=== PATIENT | male | born 1935 | race Caucasian/White ===

== ENCOUNTER 2016-06-02 21:56 | Inpatient (IN) | payer MEDICARE, OTHER ==
[2016-06-02] MEDS ORDERED: Furosemide IV* 10 MG/ML 10 ML VIAL (100 MG) ONE (22:00)
[2016-06-02 22:20] LABS: FIO2 100; PCO2 Arterial 55 mmHg (35-45)
[2016-06-02] MEDS ORDERED: Furosemide IV* 10 MG/ML VIAL (40 MG) IV SLOW PU ONE (22:26)
--- NOTE | 2016-06-02 22:43 | RAD ---
HISTORY: Shortness of breath COMPARISONS: January 09, 2015 VIEWS:1: Single frontal portable view of the chest at 10:24 PM FINDINGS: LINES AND TUBES: None. CARDIOMEDIASTINAL SILHOUETTE: The cardiomediastinal silhouette is stable. PLEURA: The costophrenic angles are sharp. No pleural abnormalities are noted. LUNG PARENCHYMA: There is confluent alveolar opacification of the lower lungs bilaterally. There is diffuse reticular pattern with indistinct pulmonary vessels. ABDOMEN: The upper abdomen is clear. There is no subphrenic gas. BONES AND SOFT TISSUES: The patient is status post median sternotomy IMPRESSION: 1. PULMONARY INTERSTITIAL EDEMA. 2. THERE IS AIRSPACE DISEASE OF THE LOWER LUNGS BILATERALLY WHICH MAY BE SUPERIMPOSED CONSOLIDATION OR PULMONARY ALVEOLAR EDEMA.
[2016-06-02 23:07] LABS: Hematocrit 32 % (42-52); Hemoglobin 10.2 g/dl (14.0-18.0); Mean Corpuscular HGB Conc 32 g/dl (31-36); Mean Corpuscular Hemoglobin 32 pg (27-31); Mean Corpuscular Volume 100 fL (80-94); Mean Platelet Volume 10 um3 (7.4-10.4); Red Blood Count 3.23 10^6/ul (4.0-5.4); Red Cell Distribution Width 15 % (10.5-15); White Blood Count 13.2 10^3/ul (3.5-10.8)
--- NOTE | 2016-06-02 23:09 | ED ---
El Martinez Erika, scribed for Adam Kearns MD on 06/02/16 at 2223 . Shortness of Breath - HPI Summary HPI Summary: Patient is an 81-year-old male presenting to the ED with a CC of SOB starting today. Per daughter, pt was at baseline this morning, except for an increase in fluid retention. Pt takes furosemide, and is followed by clean room technician Dr. Augustin. Daughter also reports pt has had a slight wet cough recently, but this occurs intermittently so was not concerning for her. She states he also noted lower abdominal pain this morning. This evening, pt suddenly developed increased SOB, and had difficulty walking due to fatigue and SOB with exertion. Pt had dinner prior to that at his son's house abelardo, who states no signs of choking. EMS was called, and reports that pt's O2 Sat was in the 70s at home. Pt does not normally use home O2. He improved to the low 80s with nasal cannula , and to the 90s with a mask. Currently, pt denies pain. Hx aortic valve dissection at age 15, with additional surgery in his 70s. Hx diabetes managed by diet. 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 Espinoza. Hx Alzheimer's - uses Namenda patch. Pt lives with his daughter, who is an RN and has power of tax attorney. Prior Records Reviewed: Discharge summary for admission 01/09/2015, diagnosed with AMS due to viral illness. He has had a cardiac stress test 01/27/2009 low probability of ischemia. Echocardiogram 01/2006 - diastolic dysfunction, at that point normal aortic valve function, ejection fracture 65-70%. - History of Current Complaint Time Seen by Provider: 06/02/16 21:57 Hx Obtained From: Patient, Family/Photoresist Contact Printer - Daughter, EMS Onset/Duration: Sudden Onset, Lasting Hours, Still Present Timing: Constant Current Severity: Moderate Dyspnea At: Rest Aggrevating Factors: Deep Breaths Alleviating Factors: EMS Tx, Oxygen Associated Signs & Symptoms: Edema - Allergy/Home Medications Allergies/Adverse Reactions: Allergies Allergy/AdvReac Type Severity Reaction Status Date / Time CONTRAST Allergy Unknown Uncoded 01/09/15 22:19 Reaction Details PMH/Surg Hx/FS Hx/Imm Hx Endocrine/Hematology History: Reports: Hx Thyroid Disease - Hypothyroid Cardiovascular History: Reports: Hx Congenital Heart Disease, Hx Congestive Heart Failure, Hx Coronary Artery Disease, Hx Hypertension History: Reports: Hx Chronic Renal Failure - Stage 3 Musculoskeletal History: Reports: Hx Back Problems Sensory History: Reports: Hx Contacts or Glasses Opthamlomology History: Reports: Hx Contacts or Glasses Neurological History: Reports: Hx Dementia Psychiatric History: Reports: Hx Anxiety, Hx Depression - Surgical History Surgery Procedure, Year, and Place: Aortic dissection repair - Family History Known Family History: Positive: Renal Disease - Social History Alcohol Use: Occasionally Hx Substance Use: No Substance Use Type: Reports: None Hx Tobacco Use: Yes Smoking Status (MU): Former Smoker Review of Systems Positive: Fatigue Positive: Shortness Of Breath, Cough Positive: Abdominal Pain Positive: Edema. Negative: Arthralgia, Myalgia All Other Systems Reviewed And Are Negative: Yes Physical Exam - Summary Physical Exam Summary: General: Comfortable, pleasant, appears lethargic HEENT: Moist mucosa Neck: Soft, supple, no adenopathy, no edema Heart: S1, S2, tachycardic with regular rhythm. No large murmurs, rubs, or gallops Lungs: Tachypnic at a rate of 50. Increased work of breathing. Moderate air movement throughout. Hoarse sounding rhonchi throughout. Rales Abdomen: Soft, flat, non-tender Extremities: Trace pitting edema, no calf tenderness. Neurological: Unaware of location, month Triage Information Reviewed: Yes Vital Signs On Initial Exam: Temp Pulse Resp BP Pulse Ox 98.8 F 106 24 152/71 95 06/02/16 22:04 06/02/16 22:19 06/02/16 22:19 06/02/16 22:04 06/02/16 22:19 Vital Signs Reviewed: Yes Procedures - Procedure Summary Procedure Summary: US Guided IV - Right superficial radial vein. 18 gauge needle, ultrasound guided. 1 attempt. Indication was poor IV access according to nurses. Diagnostics - Vital Signs Vital Signs Temp Pulse Resp BP Pulse Ox 06/02/16 22:19 106 24 95 06/02/16 22:04 98.8 F 106 50 152/71 92 - Laboratory Lab Results: Lab Results 06/02/16 Range/Units 22:15 Patient Temperature Not Reportable ABG pH 7.22 L (7.35-7.45) ABG pCO2 55 H (35-45) mmHg ABG pO2 67 L (80-100) mmHg ABG HCO3 20.6 (19-31) mmol/L ABG O2 Saturation 96.2 (95-98) % ABG Base Excess -5.4 L (-2.0-2.0) Respiration Rate Not Reportable O2 Delivery Device non rebreather Ventilator Type Not Reportable Vent Mode Not Reportable FiO2 100 Inspiratory Time Not Reportable PEEP Not Reportable Pressure Support Not Reportable Pressure Control Not Reportable EPAP Not Reportable IPAP Not Reportable BiPAP Not Reportable Lab Statement: Any lab studies that have been ordered have been reviewed, and results considered in the medical decision making process. - Radiology CXR Radiology Interpretation Completed By: Radiologist - IMPRESSION: 1. PULMONARY INTERSTITIAL EDEMA. 2. THERE IS AIRSPACE DISEASE OF THE LOWER LUNGS BILATERALLY WHICH MAY BE SUPERIMPOSED CONSOLIDATION OR PULMONARY ALVEOLAR EDEMA. - EKG 21:54 Cardiac Rate: Tachycardia - at 107 bpm EKG Rhythm: Sinus Tachycardia EKG Interpretation: ST depressions inferior lateral leads EKG Comparison: No Significant Change - compared to 01/10/2015 Re-Evaluation - Re-Evaluation First Eval Re-Evaluation Time: 22:27 Change: Improved Comment: At this time, daughter reports pt's MOLST status - agrees with trial intubation. Pt appears to be breathing more comfortably. Course/Dx - Course Assessment/Plan: He has a Hx of congenital heart disease, and multiple other comorbidities. He has had an aortic valve replacement. Apparently he has been doing fairly well except for weight gain, except tonight where he somewhat precipitately developed SOB, altered mental status, and weakness. No signs of acute HI on EKG, however likely this is flash pulmonary edema. We are aggressively managing with BiPAP, Lasix, and I will add Nitro. Dr. Parham accepts patient for admission, likely will consider ICU. - Diagnoses Differential Diagnosis/HQI/PQRI: Positive: Airway Obstruction, Airway Foreign Body, Asthma, Bronchitis, CHF, Chest Wall Pain, COPD Exacerbation, Pneumonia, Pneumothorax, Pulmonary Embolism, Pulmonary Edema, Unstable Angina Provider Diagnoses: Hypoxemia, SOB (shortness of breath) - Physician Notifications Discussed Care of Patient With: Dr. Parham (hospitalist) at 22:50 - agrees to admit Instructed by Provider To: Admit As Inpatient - Critical Care Time Critical Care Time: 30-74 min - 60 minutes Discharge - Discharge Plan Condition: Stable Disposition: ADMITTED TO [facility] Referrals: Bj Purdy MD [Primary Care Provider] - The documentation as recorded by the El ochoa Erika accurately reflects the service I personally performed and the decisions made by , Adam Kearns MD.
[2016-06-02] MEDS ORDERED: Nitroglycerin 2% OINT* 1 GM PAK TOPICAL ONE (23:17)
--- NOTE | 2016-06-02 23:19 | ED ---
Progress - Progress Note Progress Note: Rae the charge nurse informs me that if the patient stays an ICU patient then he may need to be transferred as we do not have an ICU bed. Pt is currently trial intubation and CPR/acls protocol. likely this is chf. second abg is being obtained and he is improving on Bipap. Dr. Parham aware of the patient as well as Dr. Valenzuela. if patient still remains an ICU patient and needs bipap continued overnight, he may need to be transferred. Re-Evaluation - Re-Evaluation First Eval Re-Evaluation Time: 22:27 Change: Improved Comment: At this time, daughter reports pt's MOLST status - agrees with trial intubation. Pt appears to be breathing more comfortably. Course/Dx - Diagnoses Provider Diagnoses: Hypoxemia, SOB (shortness of breath) - Provider Notifications Discussed Care Of Patient With: Dr. Parham (hospitalist) at 22:50 - agrees to admit Instructed by Provider To: Admit As Inpatient - Critical Care Time Critical Care Time: 30-74 min - 60 minutes
[2016-06-02 23:24] LABS: Add Diff/Slide Review? Slide Review Added; Comments Flag Yes
[2016-06-02 23:27] LABS: BIPAP yes; EPAP 8; FIO2 40; IPAP 16
[2016-06-02 23:30] LABS: PCO2 Arterial 44 mmHg (35-45)
[2016-06-02 23:33] LABS: BUN/Creatinine Ratio 17.7 (8-20); Calcium 8.5 mg/dL (8.6-10.3); EGFR African American 24.3 (>60); EGFR Non-African American 18.9 (>60); Globulin 3.2 g/dL (2-4); Potassium 6.1 mmol/L (3.5-5.0); Total Bilirubin 0.3 mg/dL (0.2-1.0); Total Protein 7.2 g/dL (6.4-8.9); Troponin I 0.42 ng/mL (<0.04)
--- NOTE | 2016-06-02 23:38 | HP ---
H&P (Free Text) History and Physical: PCP: Stephen Purdy MD Cardiology: Cyndi Augustin MD Nephrology: June Espinoza MD Date/Time of Evaluation: 06/02/2015 2359 CC: SOB HPI: Mr Mohan is an 81YO male HX coarctation repair age 15, s/p porcine AVR, DM2 , CKD stg 4, CAD, HTN, & HLD presents with 2-3days of increasing BLE edema and exertional SOB which became much worse today. He denies chest pain, palpitations , sweats, F/C, N/V/D, or other issues. ED evaluation is notable for a CXR most consistent with CHF, stable chronic macrocytic anemia, WBCs 13k w/ 92% neutrophils, ABG with hypoxic hypercarbic respiratory failure, K 6.1, an OTIS with creatinine of 3.16 (baseline 2 - 2.5), & troponin of 0.4. BNP has not yet been ordered. ECG PMedHx aortic coarctation s/p repair porcine AVR DM2 CKD stg 4 CAD HTN HLD Alzheimer's dementia migraines spinal stenosis s/p laminectomy Allergies CONTRAST Allergy (Uncoded 01/09/15 22:19) Unknown Reaction Details Ambulatory Orders Acetaminophen 500 mg PO DAILY 01/10/15 Levothyroxine TAB* [Synthroid TAB*] 75 mcg PO 0800 01/10/15 Memantine TAB* [Namenda TAB*] 10 mg PO BID 01/10/15 [place]-3 Fatty Acids [Fish Oil] 2,400 mg PO BID 01/10/15 Sertraline* [Zoloft*] 50 mg PO BEDTIME 01/10/15 Terazosin CAP* [Hytrin CAP*] 1 mg PO BEDTIME 01/10/15 Valsartan TAB* [Diovan TAB*] 325 mg PO QPM 01/10/15 amLODIPine TAB* [Norvasc TAB*] 10 mg PO QAM 01/10/15 Furosemide TAB* [Lasix TAB*] 120 mg PO QAM 06/03/16 SocHx: former smoker, no alcohol or recreational drugs; lives with his daughter ; DNR, trial of intubation FamHx: reviewed, non-contributory ROS: as above, otherwise reviewed and all were negative Constitutional: NAD, normally developed, overweight elderly white male vitals: Vital Signs Temp 37.1 C 01/08/17 22:04 Pulse 84 06/02/16 23:20 Resp 18 06/02/16 23:20 BP 152/71 06/02/16 22:04 Pulse Ox 93 06/02/16 23:20 Intake & Output 06/02/16 06/02/16 06/03/16 11:59 23:59 11:59 Weight 185 lb HEENM: atraumatic; sclera/conjunctiva: non-icteric/mildly injected; hearing: clinically mildly decreased; oropharynx: clear, mucosa moist Neck: soft tissue: non-tender; thyroid: normal Pulmonary: fine bibasilar crackles, fair aeration, no accessory muscle use CV: TR/RR, normal S1S2, no carotid bruit, no jugular venous distention, 2+ B DP/ PT, 1+ BLE edema Abdominal: soft, non-distended, non-tender, no rebound/guarding/rigidity, normoactive bowel sounds, no hepatosplenomegaly or masses, no costovertebral angle tenderness Musculoskeletal: general: grossly intact; gait: borderline stability Integumental: normal appearance and texture Psychiatric orientation: AA&O to PPS affect: calm mood: cooperative eye contact: good content: reliable memory: short-term impaired responses: mildly slowed, likely 2nd BiPap insight: fair Testing: Lab Results 06/02/16 06/02/16 06/02/16 Range/Units 22:10 22:10 22:10 WBC 13.2 H (3.5-10.8) 10^3/ul RBC 3.23 L (4.0-5.4) 10^6/ul Hgb 10.2 L (14.0-18.0) g/dl Hct 32 L (42-52) % MCV 100 H (80-94) fL MCH 32 H (27-31) pg MCHC 32 (31-36) g/dl RDW 15 (10.5-15) % Plt Count 178 (150-450) 10^3/ul MPV 10 (7.4-10.4) um3 Neut % (Auto) 92.3 H (38-83) % Lymph % (Auto) 2.2 L (25-47) % Glenn % (Auto) 3.0 (1-9) % Eos % (Auto) 0.5 (0-6) % Baso % (Auto) 2.0 (0-2) % Absolute Neuts (auto) 12.2 H (1.5-7.7) 10^3/ul Absolute Lymphs (auto) 0.3 L (1.0-4.8) 10^3/ul Absolute Monos (auto) 0.4 (0-0.8) 10^3/ul Absolute Eos (auto) 0.1 (0-0.6) 10^3/ul Absolute Basos (auto) 0.3 H (0-0.2) 10^3/ul Absolute Nucleated RBC 0 10^3/ul Nucleated RBC % 0 APTT (26.0-36.3) seconds Patient Temperature ABG pH (7.35-7.45) ABG pCO2 (35-45) mmHg ABG pO2 (80-100) mmHg ABG HCO3 (19-31) mmol/L ABG O2 Saturation (95-98) % ABG Base Excess (-2.0-2.0) Respiration Rate O2 Delivery Device Ventilator Type Vent Mode FiO2 Inspiratory Time PEEP Pressure Support Pressure Control EPAP IPAP BiPAP Sodium 143 (133-145) mmol/L Potassium 6.1 H* (3.5-5.0) mmol/L Chloride 113 H (101-111) mmol/L Carbon Dioxide 23 (22-32) mmol/L Anion Gap 7 (2-11) mmol/L BUN 56 H (6-24) mg/dL Creatinine 3.16 H (0.67-1.17) mg/dL Est GFR ( Amer) 24.3 (>60) Est GFR (Non-Af Amer) 18.9 (>60) BUN/Creatinine Ratio 17.7 (8-20) Glucose 226 H (70-100) mg/dL Lactic Acid 0.9 (0.5-2.0) mmol/L Calcium 8.5 L (8.6-10.3) mg/dL Total Bilirubin 0.30 (0.2-1.0) mg/dL AST 25 (13-39) U/L ALT 30 (7-52) U/L Alkaline Phosphatase 56 (34-104) U/L Troponin I 0.42 H* (<0.04) ng/mL B-Natriuretic Peptide ( - 100) pg/mL Total Protein 7.2 (6.4-8.9) g/dL Albumin 4.0 (3.2-5.2) g/dL Globulin 3.2 (2-4) g/dL Albumin/Globulin Ratio 1.3 (1-3) Procalcitonin (<0.6) ng/mL 06/02/16 06/02/16 06/02/16 Range/Units 22:10 22:10 22:10 WBC (3.5-10.8) 10^3/ul RBC (4.0-5.4) 10^6/ul Hgb (14.0-18.0) g/dl Hct (42-52) % MCV (80-94) fL MCH (27-31) pg MCHC (31-36) g/dl RDW (10.5-15) % Plt Count (150-450) 10^3/ul MPV (7.4-10.4) um3 Neut % (Auto) (38-83) % Lymph % (Auto) (25-47) % Glenn % (Auto) (1-9) % Eos % (Auto) (0-6) % Baso % (Auto) (0-2) % Absolute Neuts (auto) (1.5-7.7) 10^3/ul Absolute Lymphs (auto) (1.0-4.8) 10^3/ul Absolute Monos (auto) (0-0.8) 10^3/ul Absolute Eos (auto) (0-0.6) 10^3/ul Absolute Basos (auto) (0-0.2) 10^3/ul Absolute Nucleated RBC 10^3/ul Nucleated RBC % APTT 27.8 (26.0-36.3) seconds Patient Temperature ABG pH (7.35-7.45) ABG pCO2 (35-45) mmHg ABG pO2 (80-100) mmHg ABG HCO3 (19-31) mmol/L ABG O2 Saturation (95-98) % ABG Base Excess (-2.0-2.0) Respiration Rate O2 Delivery Device Ventilator Type Vent Mode FiO2 Inspiratory Time PEEP Pressure Support Pressure Control EPAP IPAP BiPAP Sodium (133-145) mmol/L Potassium (3.5-5.0) mmol/L Chloride (101-111) mmol/L Carbon Dioxide (22-32) mmol/L Anion Gap (2-11) mmol/L BUN (6-24) mg/dL Creatinine (0.67-1.17) mg/dL Est GFR ( Amer) (>60) Est GFR (Non-Af Amer) (>60) BUN/Creatinine Ratio (8-20) Glucose (70-100) mg/dL Lactic Acid (0.5-2.0) mmol/L Calcium (8.6-10.3) mg/dL Total Bilirubin (0.2-1.0) mg/dL AST (13-39) U/L ALT (7-52) U/L Alkaline Phosphatase (34-104) U/L Troponin I (<0.04) ng/mL B-Natriuretic Peptide 581 H ( - 100) pg/mL Total Protein (6.4-8.9) g/dL Albumin (3.2-5.2) g/dL Globulin (2-4) g/dL Albumin/Globulin Ratio (1-3) Procalcitonin 0.2 (<0.6) ng/mL 06/02/16 06/02/16 Range/Units 22:15 23:15 WBC (3.5-10.8) 10^3/ul RBC (4.0-5.4) 10^6/ul Hgb (14.0-18.0) g/dl Hct (42-52) % MCV (80-94) fL MCH (27-31) pg MCHC (31-36) g/dl RDW (10.5-15) % Plt Count (150-450) 10^3/ul MPV (7.4-10.4) um3 Neut % (Auto) (38-83) % Lymph % (Auto) (25-47) % Glenn % (Auto) (1-9) % Eos % (Auto) (0-6) % Baso % (Auto) (0-2) % Absolute Neuts (auto) (1.5-7.7) 10^3/ul Absolute Lymphs (auto) (1.0-4.8) 10^3/ul Absolute Monos (auto) (0-0.8) 10^3/ul Absolute Eos (auto) (0-0.6) 10^3/ul Absolute Basos (auto) (0-0.2) 10^3/ul Absolute Nucleated RBC 10^3/ul Nucleated RBC % APTT (26.0-36.3) seconds Patient Temperature Not Reportable Not Reportable ABG pH 7.22 L 7.31 L (7.35-7.45) ABG pCO2 55 H 44 (35-45) mmHg ABG pO2 67 L 69 L (80-100) mmHg ABG HCO3 20.6 21.9 (19-31) mmol/L ABG O2 Saturation 96.2 97.6 (95-98) % ABG Base Excess -5.4 L -3.9 L (-2.0-2.0) Respiration Rate Not Reportable Not Reportable O2 Delivery Device non rebreather Ventilator Type Not Reportable Not Reportable Vent Mode Not Reportable bipap FiO2 100 40 Inspiratory Time Not Reportable Not Reportable PEEP Not Reportable Not Reportable Pressure Support Not Reportable Not Reportable Pressure Control Not Reportable Not Reportable EPAP Not Reportable 8 IPAP Not Reportable 16 BiPAP Not Reportable yes Sodium (133-145) mmol/L Potassium (3.5-5.0) mmol/L Chloride (101-111) mmol/L Carbon Dioxide (22-32) mmol/L Anion Gap (2-11) mmol/L BUN (6-24) mg/dL Creatinine (0.67-1.17) mg/dL Est GFR ( Amer) (>60) Est GFR (Non-Af Amer) (>60) BUN/Creatinine Ratio (8-20) Glucose (70-100) mg/dL Lactic Acid (0.5-2.0) mmol/L Calcium (8.6-10.3) mg/dL Total Bilirubin (0.2-1.0) mg/dL AST (13-39) U/L ALT (7-52) U/L Alkaline Phosphatase (34-104) U/L Troponin I (<0.04) ng/mL B-Natriuretic Peptide ( - 100) pg/mL Total Protein (6.4-8.9) g/dL Albumin (3.2-5.2) g/dL Globulin (2-4) g/dL Albumin/Globulin Ratio (1-3) Procalcitonin (<0.6) ng/mL ECG, personally reviewed: sinus tachycardia rate 107, infero-lateral mild ST depression CXR, personally reviewed: IMPRESSION: 1. PULMONARY INTERSTITIAL EDEMA. 2. THERE IS AIRSPACE DISEASE OF THE LOWER LUNGS BILATERALLY WHICH MAY BE SUPERIMPOSED CONSOLIDATION OR PULMONARY ALVEOLAR EDEMA. Impression: 81M presenting with acute mixed systolic/diastolic HF, acute hypoxic /hypercarbic respiratory failure, elevated troponin, & OTIS DIAGNOSIS & PLAN Primary acute mixed systolic/diastolic HF : given 140mg furosemide in ED, continue IV diuresis in AM : NIPPV protocol : NPO for now : ICU monitoring : bolden to gravity : strict I&Os : daily weights : update ECHO : supplemental oxygen : supportive care acute hypoxic/hypercarbic respiratory failure : as above elevated troponin : suspect 2nd demand ischemia : aspirin : unable to initiate beta darin in acute CHF : telemetry : trend OTIS : suspect 2nd CHF & anticipate improvement with furosemide diuresis : monitor hyperKalemia : recheck prior to initiating TX : if confirmed, will give 1g calcium gluconate anticipating that furosemide diuresis will further resolve : cannot give insulin IVFs 2nd decompensated CHF Secondary HX aortic coarctation s/p repair : no acute issues porcine AVR : no acute issues DM2 : diet controlled : check A1c : consistent carb diet once taking PO again : correctional protocol CKD stg 4 : is not interested in dialysis : trend CAD : continue aspirin HTN : continue amlodipine : hold valsartan in setting of OTIS HLD : heart healthy diet once taking PO again hypothyroidism : check TSH : continue levothyroxine Alzheimer's dementia : continue donepezil depression : continue sertraline BPH : continue terazosin Admission Rational: inpatient for ICU management of acute HF inappropriate for outpatient setting DVTp: heparin SQ & SCDs Code Status: DNR, trial of intubation HCP: daughterKathy
[2016-06-03] MEDS ORDERED: Ondansetron INJ* 2 MG/ML VIAL IV PRN (00:45)
[2016-06-03] MEDS ORDERED: Albuterol 2.5 MG/3 ML NEB.SOL* (0.083%) INH PRN (00:45)
[2016-06-03] MEDS ORDERED: Furosemide IV* 10 MG/ML 10 ML VIAL (100 MG) IV ONE (01:00)
[2016-06-03 01:31] LABS: TSH (Thyroid Stimulating Horm) 1.5 mcIU/mL (0.34-5.60)
[2016-06-03] MEDS ORDERED: Calcium Gluconate INJ* 1 GM in NS 0.9% 100 ML* 100 ML IVPB ONE (01:36)
[2016-06-03] MEDS: Aspirin TAB* 325 MG PO SCH ×2 (02:12→11:02)
[2016-06-03] MEDS: Insulin LISPRO* 1 UNITS UNIT SUBCUT SCH ×6 (02:12→21:14)
[2016-06-03] MEDS: LORazepam INJ* 2 MG/ML 1 ML VIAL IV PRN ×2 (04:39→21:14)
[2016-06-03] MEDS ORDERED: Heparin VIAL(*) 5000 UNITS/ML VIAL (FIVE THOUSAND) SUBCUT SCH (06:00)
[2016-06-03 06:40] LABS: Hematocrit 26 % (42-52); Hemoglobin 8.5 g/dl (14.0-18.0); Mean Corpuscular HGB Conc 33 g/dl (31-36); Mean Corpuscular Hemoglobin 32 pg (27-31); Mean Corpuscular Volume 99 fL (80-94); Mean Platelet Volume 10 um3 (7.4-10.4); Red Blood Count 2.65 10^6/ul (4.0-5.4); Red Cell Distribution Width 14 % (10.5-15); White Blood Count 8.2 10^3/ul (3.5-10.8)
[2016-06-03 06:51] LABS: BUN/Creatinine Ratio 17.5 (8-20); Calcium 8.4 mg/dL (8.6-10.3); EGFR African American 23.6 (>60); EGFR Non-African American 18.3 (>60); Potassium 5.3 mmol/L (3.5-5.0)
[2016-06-03 07:08] LABS: Troponin I 4.08 ng/mL (<0.04)
[2016-06-03] MEDS ORDERED: Furosemide IV* 10 MG/ML 10 ML VIAL (100 MG) IV SCH (08:00)
[2016-06-03] MEDS ORDERED: Heparin VIAL(*) 5000 UNITS/ML VIAL (FIVE THOUSAND) IV SCH (08:00)
[2016-06-03] MEDS ORDERED: Pantoprazole IV* 40 MG IV SCH (09:00)
[2016-06-03] MEDS: Levothyroxine TAB* 75 MCG TAB PO SCH (09:30)
[2016-06-03 09:41] LABS: Hematocrit 29 % (42-52); Hemoglobin 9.3 g/dl (14.0-18.0)
[2016-06-03] MEDS: Heparin DRIP 25,000 UNITS(*) 25,000 UNITS/500 ML BAG IVPB SCH (09:45)
[2016-06-03 10:03] LABS: Troponin I 4.37 ng/mL (<0.04)
[2016-06-03] MEDS: amLODIPine TAB* 5 MG PO SCH (11:02)
[2016-06-03] MEDS: Docusate CAP* 100 MG PO SCH ×2 (11:02→21:15)
[2016-06-03] MEDS: Memantine TAB* 10 MG PO SCH ×2 (11:02→21:31)
[2016-06-03] MEDS: Pantoprazole IV* 40 MG IV SCH (13:21)
--- NOTE | 2016-06-03 14:26 | CONSULT ---
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 CXR revealed overt CHF changes and hyperinflation, cardiomegaly. K was 6.1 on admission. He has additional diagnoses of DM2, stage 4 CKD, HTN, HLD, and mild Alzheimer's dementia. He had an aortic valve replacement about 10 years ago. On admission his pH was 7.22 with pCO2 55 and pO2 67, BE -5.4. He has at least a 30 pack year history of smoking. The family have decided that they would like to avoid further interventions and have refused cardiac catheterization. They would not want any surgical intervention and so troponins are no longer being monitored. The family would like the patient to be at home on hospice services if he is eligible. He has been living for one month with his daughter Rosie who runs an in-home senior day care. The patient is stillla ble to care for himself with most ADLs and has enjoyed leaving the house to go shopping, etc. up until this admission. It is uncertain how much function he has lost. He has good long-term memory but is not oriented to place or time and has short-term loss. Lab Values: Abnormal Lab Results 06/03/16 06/03/16 06/03/16 00:40 01:24 01:58 WBC RBC Hgb Hct MCV MCH MCHC RDW Plt Count MPV Neut % (Auto) Lymph % (Auto) Lander % (Auto) Eos % (Auto) Baso % (Auto) Absolute Neuts (auto) Absolute Lymphs (auto) Absolute Monos (auto) Absolute Eos (auto) Absolute Basos (auto) Absolute Nucleated RBC Nucleated RBC % APTT Sodium Potassium 6.2 H* Chloride Carbon Dioxide Anion Gap BUN Creatinine Est GFR ( Amer) Est GFR (Non-Af Amer) BUN/Creatinine Ratio Glucose POC Glucose (mg/dL) 189 H Hemoglobin A1c Calcium Troponin I Influenza A (Rapid) Negative Influenza B (Rapid) Negative 06/03/16 06/03/16 06/03/16 06:11 06:13 06:13 WBC RBC Hgb Hct MCV MCH MCHC RDW Plt Count MPV Neut % (Auto) Lymph % (Auto) Lander % (Auto) Eos % (Auto) Baso % (Auto) Absolute Neuts (auto) Absolute Lymphs (auto) Absolute Monos (auto) Absolute Eos (auto) Absolute Basos (auto) Absolute Nucleated RBC Nucleated RBC % APTT Sodium 145 Potassium 5.3 H Chloride 115 H Carbon Dioxide 24 Anion Gap 6 BUN 57 H Creatinine 3.25 H Est GFR ( Amer) 23.6 Est GFR (Non-Af Amer) 18.3 BUN/Creatinine Ratio 17.5 Glucose 118 H POC Glucose (mg/dL) 130 H Hemoglobin A1c 6.0 Calcium 8.4 L Troponin I 4.08 H* Influenza A (Rapid) Influenza B (Rapid) 06/03/16 06/03/16 06/03/16 06:13 09:27 09:27 WBC 8.2 RBC 2.65 L Hgb 8.5 L Hct 26 L MCV 99 H MCH 32 H MCHC 33 RDW 14 Plt Count 145 L MPV 10 Neut % (Auto) 82.2 Lymph % (Auto) 8.8 L Lander % (Auto) 8.2 Eos % (Auto) 0.5 Baso % (Auto) 0.3 Absolute Neuts (auto) 6.8 Absolute Lymphs (auto) 0.7 L Absolute Monos (auto) 0.7 Absolute Eos (auto) 0 Absolute Basos (auto) 0 Absolute Nucleated RBC 0 Nucleated RBC % 0 APTT 28.6 Sodium Potassium Chloride Carbon Dioxide Anion Gap BUN 56 H Creatinine Est GFR ( Amer) Est GFR (Non-Af Amer) BUN/Creatinine Ratio Glucose POC Glucose (mg/dL) Hemoglobin A1c Calcium Troponin I 4.37 H* Influenza A (Rapid) Influenza B (Rapid) 06/03/16 09:27 WBC RBC Hgb 9.3 L Hct 29 L MCV MCH MCHC RDW Plt Count MPV Neut % (Auto) Lymph % (Auto) Lander % (Auto) Eos % (Auto) Baso % (Auto) Absolute Neuts (auto) Absolute Lymphs (auto) Absolute Monos (auto) Absolute Eos (auto) Absolute Basos (auto) Absolute Nucleated RBC Nucleated RBC % APTT Sodium Potassium Chloride Carbon Dioxide Anion Gap BUN Creatinine Est GFR ( Amer) Est GFR (Non-Af Amer) BUN/Creatinine Ratio Glucose POC Glucose (mg/dL) Hemoglobin A1c Calcium Troponin I Influenza A (Rapid) Influenza B (Rapid) Laboratory Last Values WBC 8.2 10^3/ul (3.5-10.8) 06/03/16 06:13 RBC 2.65 10^6/ul (4.0-5.4) L 06/03/16 06:13 Hgb 9.3 g/dl (14.0-18.0) L 06/03/16 09:27 Hct 29 % (42-52) L 06/03/16 09:27 MCV 99 fL (80-94) H 06/03/16 06:13 MCH 32 pg (27-31) H 06/03/16 06:13 MCHC 33 g/dl (31-36) 06/03/16 06:13 RDW 14 % (10.5-15) 06/03/16 06:13 Plt Count 145 10^3/ul (150-450) L 06/03/16 06:13 MPV 10 um3 (7.4-10.4) 06/03/16 06:13 Neut % (Auto) 82.2 % (38-83) 06/03/16 06:13 Lymph % (Auto) 8.8 % (25-47) L 06/03/16 06:13 Lander % (Auto) 8.2 % (1-9) 06/03/16 06:13 Eos % (Auto) 0.5 % (0-6) 06/03/16 06:13 Baso % (Auto) 0.3 % (0-2) 06/03/16 06:13 Absolute Neuts (auto) 6.8 10^3/ul (1.5-7.7) 06/03/16 06:13 Absolute Lymphs (auto) 0.7 10^3/ul (1.0-4.8) L 06/03/16 06:13 Absolute Monos (auto) 0.7 10^3/ul (0-0.8) 06/03/16 06:13 Absolute Eos (auto) 0 10^3/ul (0-0.6) 06/03/16 06:13 Absolute Basos (auto) 0 10^3/ul (0-0.2) 06/03/16 06:13 Absolute Nucleated RBC 0 10^3/ul 06/03/16 06:13 Nucleated RBC % 0 06/03/16 06:13 APTT 28.6 seconds (26.0-36.3) 06/03/16 09:27 Patient Temperature Not Reportable 06/02/16 23:15 ABG pH 7.31 (7.35-7.45) L 06/02/16 23:15 ABG pCO2 44 mmHg (35-45) 06/02/16 23:15 ABG pO2 69 mmHg (80-100) L 06/02/16 23:15 ABG HCO3 21.9 mmol/L (19-31) 06/02/16 23:15 ABG O2 Saturation 97.6 % (95-98) 06/02/16 23:15 ABG Base Excess -3.9 (-2.0-2.0) L 06/02/16 23:15 Respiration Rate Not Reportable 06/02/16 23:15 O2 Delivery Device non rebreather 06/02/16 22:15 Ventilator Type Not Reportable 06/02/16 23:15 Vent Mode bipap 06/02/16 23:15 FiO2 40 06/02/16 23:15 Inspiratory Time Not Reportable 06/02/16 23:15 PEEP Not Reportable 06/02/16 23:15 Pressure Support Not Reportable 06/02/16 23:15 Pressure Control Not Reportable 06/02/16 23:15 EPAP 8 06/02/16 23:15 IPAP 16 06/02/16 23:15 BiPAP yes 06/02/16 23:15 Sodium 145 mmol/L (133-145) 06/03/16 06:13 Potassium 5.3 mmol/L (3.5-5.0) H 06/03/16 06:13 Chloride 115 mmol/L (101-111) H 06/03/16 06:13 Carbon Dioxide 24 mmol/L (22-32) 06/03/16 06:13 Anion Gap 6 mmol/L (2-11) 06/03/16 06:13 BUN 56 mg/dL (6-24) H 06/03/16 09:27 Creatinine 3.25 mg/dL (0.67-1.17) H 06/03/16 06:13 Est GFR ( Amer) 23.6 (>60) 06/03/16 06:13 Est GFR (Non-Af Amer) 18.3 (>60) 06/03/16 06:13 BUN/Creatinine Ratio 17.5 (8-20) 06/03/16 06:13 Glucose 118 mg/dL (70-100) H 06/03/16 06:13 POC Glucose (mg/dL) 130 mg/dL (74-106) H 06/03/16 06:11 Hemoglobin A1c 6.0 % (Less than 6.0) 06/03/16 06:13 Lactic Acid 0.9 mmol/L (0.5-2.0) 06/02/16 22:10 Calcium 8.4 mg/dL (8.6-10.3) L 06/03/16 06:13 Total Bilirubin 0.30 mg/dL (0.2-1.0) 06/02/16 22:10 AST 25 U/L (13-39) 06/02/16 22:10 ALT 30 U/L (7-52) 06/02/16 22:10 Alkaline Phosphatase 56 U/L (34-104) 06/02/16 22:10 Troponin I 4.37 ng/mL (<0.04) H* 06/03/16 09:27 B-Natriuretic Peptide 581 pg/mL (-100) H 06/02/16 22:10 Total Protein 7.2 g/dL (6.4-8.9) 06/02/16 22:10 Albumin 4.0 g/dL (3.2-5.2) 06/02/16 22:10 Globulin 3.2 g/dL (2-4) 06/02/16 22:10 Albumin/Globulin Ratio 1.3 (1-3) 06/02/16 22:10 Procalcitonin 0.2 ng/mL (<0.6) 06/02/16 22:10 TSH 1.50 mcIU/mL (0.34-5.60) 06/02/16 22:10 Influenza A (Rapid) Negative (Negative) 06/03/16 01:24 Influenza B (Rapid) Negative (Negative) 06/03/16 01:24 - Objective Active Medications: Acetaminophen (Tylenol Tab*) 650 mg PO Q6H PRN PRN Reason: FEVER/PAIN Albuterol (Ventolin 2.5 Mg/3 Ml Neb.Stefanie*) 2.5 mg INH Q2H PRN PRN Reason: SOB/WHEEZING Amlodipine Besylate (Norvasc Tab*) 10 mg PO QAM [facility] Last Admin: 06/03/16 11:02 Dose: Not Given Aspirin (Aspirin Tab*) 325 mg PO DAILY [facility] Last Admin: 06/03/16 11:02 Dose: Not Given Docusate Sodium (Colace Cap*) 200 mg PO BID [facility] Last Admin: 06/03/16 11:02 Dose: Not Given Furosemide (Lasix Iv*) 60 mg IV DAILY [facility] Heparin Sodium (Porcine) (Heparin Vial(*)) 0 units IV .PER PROTOCOL BRONWYN PRN Reason: Protocol Last Admin: 06/03/16 09:41 Dose: 6,000 units Heparin Sodium/Dextrose (Heparin Drip 25,000 Units(*)) 25,000 units in 500 mls @ 0 mls/hr IVPB .PER RATE BRONWYN; Per Protocol PRN Reason: Protocol Last Admin: 06/03/16 09:45 Dose: 22 mls/hr Insulin Human Lispro (Humalog*) 0 units SUBCUT Q4H BRONWYN PRN Reason: Protocol Last Admin: 06/03/16 13:05 Dose: Not Given Levothyroxine Sodium (Synthroid Tab*) 75 mcg PO 0600 [facility] Last Admin: 06/03/16 09:30 Dose: Not Given Lorazepam (Ativan Inj*) 0.5 mg IV BEDTIME PRN PRN Reason: SLEEP Last Admin: 06/03/16 04:39 Dose: 0.5 mg Memantine (Namenda Tab*) 10 mg PO BID [facility] Last Admin: 06/03/16 11:02 Dose: Not Given Ondansetron HCl (Zofran Inj*) 4 mg IV Q6H PRN PRN Reason: NAUSEA Pantoprazole Sodium (Protonix Iv*) 40 mg IV 1400 [facility] Last Admin: 06/03/16 13:21 Dose: 40 mg Sertraline HCl (Zoloft*) 50 mg PO BEDTIME BRONWYN Terazosin HCl (Hytrin Cap*) 1 mg PO BEDTIME [facility] Vital Signs: Vital Signs: Temp Pulse Resp BP Pulse Ox 98 F 81 16 110/89 97 06/03/16 12:00 06/03/16 12:30 06/03/16 12:30 06/03/16 12:00 06/03/16 13:59 Patient Weight: Weight 174 lb 13.225 oz Intake and Output: Intake & Output 06/01/16 06/02/16 06/03/16 06/04/16 06:59 06:59 06:59 06:59 Intake Total 110 Output Total 3475 Balance -3365 Weight 177 lb 174 lb 13.225 oz Intake: IV Fluids 110 Output: Delatorre 3475 ADLs: Meal Record Start: 06/03/16 07: 32 Freq: 09,13,18 Status: Active Created 06/03/16 07:32 System (Rec: 06/03/16 07:32 System [id number]) Document 06/03/16 09:00 [id number] (Rec: 06/03/16 10:55 [id number] [id number]) Document 06/03/16 13:00 [id number] (Rec: 06/03/16 13:34 [id number]) Intake and Output Start: 06/02/16 21: 59 Freq: Status: Active Created 06/02/16 21:59 System (Rec: 06/02/16 21:59 System [id number]) Document 06/03/16 01:48 [id number] (Rec: 06/03/16 01:48 [id number]) Document 06/03/16 06:34 [id number] (Rec: 06/03/16 06:35 [id number] [id number]) Intake and Output Start: 06/03/16 07: 32 Freq: 06,14,22 Status: Active Created 06/03/16 07:32 System (Rec: 06/03/16 07:32 System [id number]) General Impression: Pleasantly confused elderly male lying in bed Neck: NL Appearance and Movements; NL JVP Cardiovascular: RRR, - - Prominent iv/vi holosystolic murmur at LUSB, PMI laterally displaced Respiratory: Symmetrical Chest Expansion and Respiratory Effort Abdominal: NL Sounds; No Tenderness; No Distention Extremities: No Edema Neurological: - - Not oriented to place or time - Assessment Assessment: This patient had a PPS of 80-90% prior to this admission. He is non-compliant with sodium restriction, and thismay have caused his decompensation of CHF, or it may have been secondary to cardiac ischemia. The patient had an echo done today for prognostic purposes and this will be helpful in determining his eligibility for hospice. His eGFR is 18.9, so although he has significant renal impairment and does not want dialysis, that measure alone does not make him hospice appropriate. He also probably has some measure of COPD, given his CO2 retention, and together with his CHF, the combination of CRF, COPD and CHF present a worse prognosis than any one of these alone. If his echo shows significant reduction in EF or hypokinesis, we may consider him for hospice. His family has stated that they agree with no further hospitalization as long as he can be kept comfortable at home, and they want to orient his care entirely toward comfort and maximal quality of life. He will need a PT evaluation before discharge to see what his capacity for ambulation will be, and also the family needs to decide if they want to continue anticoagulation, realizing that the patient is a fall risk. - Plan Consult Plan (MU): Palliative - Time On Unit Date of Evaluation: 06/03/16 Hospice Consult Time in: 13:30 Hospice Consult Time Out: 14:45 Hospice Consult Time Total: 75 > 50% of Time Spend In Counseling or Coordinating Care: Yes
--- NOTE | 2016-06-03 14:33 | ECHO ---
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 The study is technically limited due to the patient's smoking history. Left Ventricle: The left ventricular chamber size is normal. Mild to moderate concentric left ventricular hypertrophy is observed. Global left ventricular wall motion and contractility are within normal limits. Left ventricular systolic function is at the lower limits of normal. The estimated ejection fraction is 50-55%. Ventricular septal wall motion has a post-operative appearance. There is no consistent Doppler evidence of clinically significant diastolic dysfunction. The patient was unable to perform a Valsalva maneuver. Left Atrium: The left atrial chamber size is normal. Right Ventricle: The right ventricular chamber size and systolic function are within normal limits. Right Atrium: The right atrium is not well visualized. The right atrium is mildly dilated. Aortic Valve: The aortic valve structure is not well visualized. There is no evidence of aortic regurgitation. The mean gradient of the aortic valve is 11 mmHg. The highest aortic valve velocity was obtained with the standard probe from the A3C view. A porcine bio-prosthetic aortic valve is present. The bio-prosthetic aortic valve appears to be functioning normally. Mitral Valve: There is mitral annular calcification. The mitral valve leaflets are mildly thickened. There is mild mitral regurgitation. There is no evidence of mitral stenosis. Tricuspid Valve: The tricuspid valve structure is not well visualized. There is trace to mild tricuspid regurgitation. Unable to estimate the right ventricular systolic pressure. Pulmonic Valve: The pulmonic valve appears normal. There is a trace pulmonic regurgitation. There is no pulmonic stenosis. Pericardium: There is no significant pericardial effusion. A pericardial fat pad is visualized. Aorta: There is no dilatation of the ascending aorta. The aortic arch is not well visualized. The aortic root is normal in size. Pulmonary Artery: The main pulmonary artery appears normal. Venous: The inferior vena cava appears normal in size. There is less than 50% respiratory change in the inferior vena cava dimension. Conclusions Global left ventricular wall motion and contractility are within normal limits. Left ventricular systolic function is at the lower limits of normal. The estimated ejection fraction is 50-55%. Ventricular septal wall motion has a post-operative appearance. The right ventricular chamber size and systolic function are within normal limits. A porcine bio-prosthetic aortic valve is present. The bio-prosthetic aortic valve appears to be functioning normally. (#23 valve) The mean gradient of the aortic valve is 11 mmHg. There is no evidence of aortic regurgitation. The mitral valve leaflets are mildly thickened. There is mild mitral regurgitation. There is trace to mild tricuspid regurgitation. Unable to estimate the right ventricular systolic pressure. There is no significant pericardial effusion. Compared to study of 10/2013, there is little change Measurements Name Value Normal Range RAd ISD 4CH 5.2 cm (3.4 - 4.9) IVSd (2D) 1.5 cm (0.6 - 1) LVPWd (2D) 1.2 cm (0.6 - 1) LVIDd (2D) 4.6 cm (3.6 - 5.4) LVIDs (2D) 3.1 cm - LV FS (2D) 33 % (25 - 45) Aortic Annulus 2 cm (1.4 - 2.6) Ao root diameter (2D) 2.9 cm (2.1 - 3.5) Ascending Ao 3 cm (2.1 - 3.4) LA dimension (AP) 2D 3.1 cm (2.3 - 3.8) LAd ISD 4CH 4.8 cm (2.9 - 5.3) LA ISD 4CH W 4.1 cm (2.5 - 4.5) Name Value Normal Range LA ESV SP 4CH (A/L) 47 ml - LA ESV SP 2CH (A/L) 33 ml - LA ESV BP (A/L) 40 ml - LA ESV BP (A/L) index 20.5 ml/m2 - LA ESV SP 4CH (MOD) 42 ml - LA ESV SP 2CH (MOD) 31 ml - Name Value Normal Range MV E-wave Vmax 1.2 m/sec - MV deceleration time 230 msec - MV A-wave Vmax 0.99 m/sec - MV E:A ratio 1.2 ratio - LV septal e' Vmax 0.05 m/sec - LV lateral e' Vmax 0.1 m/sec - LV E:e' septal ratio 24 ratio - LV E:e' lateral ratio 12 ratio - Name Value Normal Range AV Vmax 2.3 m/sec - AV VTI 50.2 cm - AV peak gradient 21 mmHg - AV mean gradient 11 mmHg - LVOT diameter 1.9 cm - LVOT Vmax 0.78 m/sec - LVOT VTI 20.2 cm - JAS (continuity Vmax) 1 cm2 - JAS (continuity VTI) 1.1 cm2 - Name Value Normal Range MV Vmax 1.4 m/sec - MV VTI 34 cm - MV peak gradient 7.5 mmHg - MV mean gradient 2.7 mmHg - MV PHT 53 msec - MVA (PHT) 4.1 cm2 - MVA (continuity VTI) 1.6 cm2 - Name Value Normal Range IVC diameter 2 cm - Name Value Normal Range PV Vmax 0.94 m/sec -
[2016-06-03] MEDS ORDERED: Valsartan TAB* 80 MG PO SCH (18:00)
--- NOTE | 2016-06-03 18:11 | PN ---
Subjective Date of Service: 06/03/16 Interval History: Seen with patient's 2 daughters and his sister present Pt denies chest pain He is unable to identify his daughters who are present He is agitated and removing blankets and pillows. Objective Active Medications: Acetaminophen (Tylenol Tab*) 650 mg PO Q6H PRN PRN Reason: FEVER/PAIN Albuterol (Ventolin 2.5 Mg/3 Ml Neb.Stefanie*) 2.5 mg INH Q2H PRN PRN Reason: SOB/WHEEZING Amlodipine Besylate (Norvasc Tab*) 10 mg PO QAM [facility] Last Admin: 06/03/16 11:02 Dose: Not Given Aspirin (Aspirin Tab*) 325 mg PO DAILY [facility] Last Admin: 06/03/16 11:02 Dose: Not Given Docusate Sodium (Colace Cap*) 200 mg PO BID [facility] Last Admin: 06/03/16 11:02 Dose: Not Given Furosemide (Lasix Iv*) 60 mg IV DAILY [facility] Heparin Sodium (Porcine) (Heparin Vial(*)) 0 units IV .PER PROTOCOL [facility] PRN Reason: Protocol Last Admin: 06/03/16 09:41 Dose: 6,000 units Heparin Sodium/Dextrose (Heparin Drip 25,000 Units(*)) 25,000 units in 500 mls @ 0 mls/hr IVPB .PER RATE [facility]; Per Protocol PRN Reason: Protocol Last Admin: 06/03/16 09:45 Dose: 22 mls/hr Insulin Human Lispro (Humalog*) 0 units SUBCUT Q4H [facility] PRN Reason: Protocol Last Admin: 06/03/16 17:57 Dose: 4 units Levothyroxine Sodium (Synthroid Tab*) 75 mcg PO 0600 [facility] Last Admin: 06/03/16 09:30 Dose: Not Given Lorazepam (Ativan Inj*) 0.5 mg IV BEDTIME PRN PRN Reason: SLEEP Last Admin: 06/03/16 04:39 Dose: 0.5 mg Memantine (Namenda Tab*) 10 mg PO BID [facility] Last Admin: 06/03/16 11:02 Dose: Not Given Metoprolol Tartrate (Lopressor Tab*) 25 mg PO BID [facility] Ondansetron HCl (Zofran Inj*) 4 mg IV Q6H PRN PRN Reason: NAUSEA Pantoprazole Sodium (Protonix Iv*) 40 mg IV 1400 [facility] Last Admin: 06/03/16 13:21 Dose: 40 mg Sertraline HCl (Zoloft*) 50 mg PO BEDTIME [facility] Terazosin HCl (Hytrin Cap*) 1 mg PO BEDTIME [facility] Vital Signs 06/03/16 06/03/16 06/03/16 01:04 01:28 02:00 Temperature Pulse Rate 70 74 Respiratory 21 Rate Blood Pressure 113/62 (mmHg) O2 Sat by Pulse 100 100 Oximetry 06/03/16 06/03/16 06/03/16 03:00 04:00 04:12 Temperature Pulse Rate 75 91 92 Respiratory Rate Blood Pressure 123/85 173/81 155/72 (mmHg) O2 Sat by Pulse 100 100 99 Oximetry 06/03/16 06/03/16 06/03/16 04:29 04:39 04:45 Temperature 99.3 F Pulse Rate 77 Respiratory 19 Rate Blood Pressure (mmHg) O2 Sat by Pulse 100 Oximetry 06/03/16 06/03/16 06/03/16 05:00 05:01 05:15 Temperature Pulse Rate 77 81 78 Respiratory Rate Blood Pressure 127/56 (mmHg) O2 Sat by Pulse 100 100 100 Oximetry 06/03/16 06/03/16 06/03/16 05:29 05:45 06:00 Temperature Pulse Rate 79 68 Respiratory Rate Blood Pressure 102/44 (mmHg) O2 Sat by Pulse 100 96 Oximetry 06/03/16 06/03/16 06/03/16 06:15 06:30 06:45 Temperature Pulse Rate 66 69 67 Respiratory Rate Blood Pressure (mmHg) O2 Sat by Pulse 95 95 96 Oximetry 06/03/16 06/03/16 06/03/16 06:59 07:15 07:30 Temperature Pulse Rate 68 73 88 Respiratory Rate Blood Pressure (mmHg) O2 Sat by Pulse 96 95 93 Oximetry 06/03/16 06/03/16 06/03/16 07:44 07:49 07:55 Temperature Pulse Rate 87 Respiratory Rate Blood Pressure 137/79 113/50 (mmHg) O2 Sat by Pulse 93 Oximetry 06/03/16 06/03/16 06/03/16 08:10 08:15 08:26 Temperature 99.8 F Pulse Rate 83 79 78 Respiratory 17 15 15 Rate Blood Pressure 137/54 (mmHg) O2 Sat by Pulse 95 94 96 Oximetry 01/02/0906/03/16 06/03/16 08:30 08:45 09:00 Temperature Pulse Rate 76 74 Respiratory 14 14 14 Rate Blood Pressure 123/53 (mmHg) O2 Sat by Pulse 96 96 Oximetry 06/03/16 06/03/16 06/03/16 09:15 09:30 09:52 Temperature Pulse Rate 81 78 Respiratory 16 14 16 Rate Blood Pressure (mmHg) O2 Sat by Pulse 95 97 Oximetry 06/03/16 06/03/16 06/03/16 10:00 10:30 11:00 Temperature Pulse Rate 84 70 78 Respiratory 15 15 14 Rate Blood Pressure 134/51 124/54 (mmHg) O2 Sat by Pulse 94 95 97 Oximetry 06/03/16 06/03/16 06/03/16 11:30 12:00 12:30 Temperature 98 F Pulse Rate 89 79 81 Respiratory 14 14 16 Rate Blood Pressure 110/89 (mmHg) O2 Sat by Pulse 95 97 97 Oximetry 06/03/16 06/03/16 06/03/16 13:00 13:30 13:59 Temperature Pulse Rate 76 84 Respiratory 16 16 Rate Blood Pressure 134/58 (mmHg) O2 Sat by Pulse 98 96 97 Oximetry 06/03/16 06/03/16 06/03/16 14:00 14:30 15:00 Temperature Pulse Rate 80 78 75 Respiratory 15 16 15 Rate Blood Pressure 140/57 145/57 (mmHg) O2 Sat by Pulse 97 98 97 Oximetry 06/03/16 06/03/16 06/03/16 15:30 16:00 16:30 Temperature 100 F Pulse Rate 85 100 Respiratory 16 22 21 Rate Blood Pressure (mmHg) O2 Sat by Pulse 90 95 Oximetry 06/03/16 17:00 Temperature Pulse Rate 99 Respiratory 22 Rate Blood Pressure (mmHg) O2 Sat by Pulse 90 Oximetry Oxygen Devices in Use Now: Nasal Cannula Appearance: pulling off blankets and pillows, NAD Eyes: No Scleral Icterus, PERRLA Ears/Nose/Mouth/Throat: - - dry MM Neck: NL Appearance and Movements; NL JVP, Trachea Midline Respiratory: Symmetrical Chest Expansion and Respiratory Effort, - - rales b/l bases up 1/3 Cardiovascular: RRR, - - 2/6 ESCOBAR Abdominal: NL Sounds; No Tenderness; No Distention, No Hepatosplenomegaly Lymphatic: No Cervical Adenopathy Extremities: - - trace to 1+- LE edema b/l Neurological: - - AOx0, moves all extremities Result Diagrams: 06/03/16 09:27 06/03/16 09:27 Additional Lab and Data: Lab Results 06/02/16 Range/Units 22:15 Patient Temperature Not Reportable ABG pH 7.22 L (7.35-7.45) ABG pCO2 55 H (35-45) mmHg ABG pO2 67 L (80-100) mmHg ABG HCO3 20.6 (19-31) mmol/L ABG O2 Saturation 96.2 (95-98) % ABG Base Excess -5.4 L (-2.0-2.0) Respiration Rate Not Reportable O2 Delivery Device non rebreather Ventilator Type Not Reportable Vent Mode Not Reportable FiO2 100 Inspiratory Time Not Reportable PEEP Not Reportable Pressure Support Not Reportable Pressure Control Not Reportable EPAP Not Reportable IPAP Not Reportable BiPAP Not Reportable Microbiology and Other Data: Microbiology 06/03/16 01:15 Influenza Types A,B Antigen (BHAVESH) - Final Nasal Specimen received for Influenza A/B Molecular testing Assess/Plan/Problems-Billing Assessment: 81 yo M h/o AVR, CHF, CAD, CKD, DM2, Alzheimer's p/w decompensated acute diastolic heart failure exacerbation with associated elevated troponin - Patient Problems (1) Acute exacerbation of CHF (congestive heart failure) Comment: diastolic. Improved with lasix overnight c/w lasix daily bolden removed Suspect decompensation in setting of ACS (2) Acute myocardial infarction Comment: Elevated troponin and EKG evidence of ischemia in setting of decompensated CHF Family first did not want to pursue potential [facility] however have decided to pursue stress test before deciding to opt away from [facility] c/w heparin gtt c/w ASA, beta darin, statin check EKG in AM (3) Acute on chronic renal failure Comment: In setting of ACS, CHF exacerbation repeat lab testing in AM (4) Diabetes Current Visit: Yes Status: Acute Code(s): E11.9 - TYPE 2 DIABETES MELLITUS WITHOUT COMPLICATIONS SNOMED Code(s): 06289310 Comment: ISS (5) DVT prophylaxis Comment: hep gtt (6) DNR (do not resuscitate) Comment: MOLST completed with family
[2016-06-03] MEDS: Acetaminophen TAB* 325 MG PO PRN (19:55)
[2016-06-03] MEDS ORDERED: Atorvastatin* 80 MG TAB PO ONE (21:00)
[2016-06-03] MEDS: Metoprolol Tartrate TAB* 25 MG PO SCH (21:15)
[2016-06-03] MEDS: Sertraline* 50 MG TAB PO SCH (21:18)
[2016-06-03] MEDS: Terazosin CAP* 1 MG PO SCH (21:18)
--- NOTE | 2016-06-03 21:47 | CONS ---
CARDIOLOGY CONSULTATION: DATE OF CONSULTATION: 06/03/16 INDICATION FOR CONSULTATION: Congestive heart failure and acute coronary syndrome. HISTORY OF PRESENT ILLNESS: The patient is an 81-year-old gentleman with a history of aortic valve replacement, history of single-vessel bypass who was admitted to the hospital with congestive heart failure. The patient has [id number] dementia and is unable to give me adequate account of what occurred. The patient's family is very involved and were able to give me details of his presentation. The patient's family state that he was fine up until 5 o'clock yesterday. The patient's family state that he was in his usual state of health this past weekend when he was out doing his usual activities, he was out the shopping in the grocery store. Yesterday afternoon, he started having sudden onset of shortness of breath, they could not elicit any episodes of chest pain with his symptoms; however, he did complain of short of breath. They noticed a significant increase in his respiratory rate and physical discomfort. They decided to bring him to the emergency room. On arrival to the emergency room, the patient was diagnosed with congestive heart failure and given IV Lasix. The patient diuresed a significant amount of fluid and a significant improvement in his symptoms. The patient had initial troponin of 0.4. His second troponin is 4.08, third troponin of 4.37. His EKG demonstrates normal sinus rhythm with T wave inversions in V4 through V6. The patient had an echocardiogram today, which demonstrated normal LV size and systolic function. No obvious focal wall motion abnormalities. His aortic valve is functioning normally. PAST MEDICAL HISTORY: Significant for aortic valve disease. 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 He has aortic valve replaced and a single- vessel bypass with a saphenous vein graft to his right coronary artery in February 2005. His last echocardiogram as an outpatient was in 2013, which showed normal LV size and systolic function, normal right ventricular size, normal function of his bioprosthetic valve, trace mitral regurgitation. OUTPATIENT MEDICATIONS: 1. Lasix 40 mg as needed. 2. Zoloft 50 mg a day. 3. Aspirin 325 a day. 4. 10 mg b.i.d. 5. Levothyroxine 75 mcg a day. 6. Indomethacin 25 mg as needed. 7. Terazosin 1 mg a day. 8. Tramadol 50 mg as needed. 9. Valsartan 320 mg a day. 10. Amlodipine 10 mg a day. ALLERGIES: He does have IV CONTRAST DYE allergy. Allergies to LIPITOR, ALTACE , ALLOPURINOL. SOCIAL HISTORY: He lives with his family. He is a former smoker. He quit many years ago. 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 FAMILY HISTORY: No family history of early coronary artery disease. PHYSICAL EXAMINATION: Height is 5 feet 7 inches, weight is 170 pounds, heart rate is 81, temperature 98, respiratory rate is 14, oxygen saturation 95% on room air, blood pressure 124/54. Sclerae anicteric. Oropharynx is pink without erythema. Carotids are 2+ with bilateral bruits. JVD is normal. Thyroid is normal. Cardiac Exam: S1, S2 with 1/6 systolic ejection murmur. No diastolic murmur. Lungs are clear to auscultation. There is no dullness to percussion. Abdomen is soft, nontender, and nondistended with normoactive bowel sounds. Extremities show no edema. He has 2+ pulses throughout. The patient is awake and alert, but not oriented. LABORATORY STUDIES: Chemistries: Initially his potassium level was 6.2, it is now down to 5.3, BUN 57, creatinine 3.2. His creatinine was 1.5 a year ago. Troponins are as described above. TSH is 1.5. White count is 13, hemoglobin 10 , hematocrit 32, platelet count of 178. Chest x-ray is consistent with congestive heart failure. IMPRESSION: This is an 81-year-old gentleman with history of aortic valve replacement and single-vessel bypass who came to the emergency room because of sudden onset of shortness of breath. Again, I could not elicit any symptoms of chest pain from this patient or from the family. His sudden onset of congestive heart failure is suggestive of ischemia. His initial troponin level is only minimally elevated. His second troponin is markedly elevated at 4.08. This suggested to me that his episode was ischemic in nature resulting in congestive heart failure. The patient responded quickly to diuretic therapy. I had a long discussion with the family regarding his overall medical care. Initially, they had been thinking of proceeding with no medical care or significant medical care; however, in describing with them his event, they are more concerned about repeat ischemic events. For now, recommendation is that the patient undergo chemical nuclear stress test and decision at that point whether to proceed with cardiac catheterization. The patient's medical therapy will be maximized. Currently, he is on IV Lasix and heparin. I will start the patient on low dose beta-darin. The patient had been on amlodipine as an outpatient. The valsartan will likely need to be tapered because of his renal insufficiency. CC: Dr. Augustin; Dr. Purdy * [id number]/[facility] #: [id number] [facility]
[2016-06-04] MEDS: Insulin LISPRO* 1 UNITS UNIT SUBCUT SCH ×7 (00:01→21:56)
[2016-06-04] MEDS ORDERED: Heparin VIAL(*) 5000 UNITS/ML VIAL (FIVE THOUSAND) SUBCUT SCH (06:00)
[2016-06-04 06:03] LABS: Troponin I 13.2 ng/mL (<0.04)
[2016-06-04] MEDS: Levothyroxine TAB* 75 MCG TAB PO SCH (06:16)
[2016-06-04] MEDS: Memantine TAB* 10 MG PO SCH (08:54)
[2016-06-04] MEDS ORDERED: Furosemide IV* 10 MG/ML 10 ML VIAL (100 MG) IV SCH (09:00)
[2016-06-04] MEDS: Docusate CAP* 100 MG PO SCH ×2 (09:01→20:44)
[2016-06-04] MEDS: Aspirin TAB* 325 MG PO SCH (09:01)
[2016-06-04] MEDS: amLODIPine TAB* 5 MG PO SCH (09:05)
[2016-06-04] MEDS: Metoprolol Tartrate TAB* 25 MG PO SCH ×2 (09:05→20:44)
[2016-06-04 09:26] LABS: Calcium 8.4 mg/dL (8.6-10.3); EGFR African American 25.2 (>60); EGFR Non-African American 19.6 (>60); Potassium 4.5 mmol/L (3.5-5.0)
[2016-06-04] MEDS: Heparin DRIP 25,000 UNITS(*) 25,000 UNITS/500 ML BAG IVPB SCH (10:29)
[2016-06-04 12:09] LABS: Hematocrit 26 % (42-52); Hemoglobin 8.3 g/dl (14.0-18.0); Mean Corpuscular HGB Conc 32 g/dl (31-36); Mean Corpuscular Hemoglobin 32 pg (27-31); Mean Corpuscular Volume 99 fL (80-94); Mean Platelet Volume 10 um3 (7.4-10.4); Red Blood Count 2.59 10^6/ul (4.0-5.4); Red Cell Distribution Width 15 % (10.5-15); White Blood Count 8.8 10^3/ul (3.5-10.8)
[2016-06-04] MEDS: Pantoprazole IV* 40 MG IV SCH (12:46)
--- NOTE | 2016-06-04 16:49 | PN ---
Subjective Date of Service: 06/04/16 Interval History: Seen and examined throughout the day. Discussed care with both daughters. Troponin increasing. Pt increasingly alert and eating turkey sandwich. Retaining urine and bolden replaced. Developed gross hematuria on heparin with drip subsequently discontinued. Pt not indicating any chest discomfort Objective Active Medications: Acetaminophen (Tylenol Tab*) 650 mg PO Q6H PRN PRN Reason: FEVER/PAIN Last Admin: 06/03/16 19:55 Dose: 650 mg Albuterol (Ventolin 2.5 Mg/3 Ml Neb.Stefanie*) 2.5 mg INH Q2H PRN PRN Reason: SOB/WHEEZING Aspirin (Aspirin Tab*) 325 mg PO DAILY [facility] Last Admin: 06/04/16 09:01 Dose: 325 mg Docusate Sodium (Colace Cap*) 200 mg PO BID [facility] Last Admin: 06/04/16 09:01 Dose: 200 mg Heparin Sodium (Porcine) (Heparin Vial(*)) 0 units IV .PER PROTOCOL [facility] PRN Reason: Protocol Last Admin: 06/03/16 09:41 Dose: 6,000 units Heparin Sodium/Dextrose (Heparin Drip 25,000 Units(*)) 25,000 units in 500 mls @ 0 mls/hr IVPB .PER RATE [facility]; Per Protocol PRN Reason: Protocol Last Admin: 06/04/16 10:29 Dose: 16 mls/hr Insulin Human Lispro (Humalog*) 0 units SUBCUT Q4H [facility] PRN Reason: Protocol Last Admin: 06/04/16 12:46 Dose: 1 units Levothyroxine Sodium (Synthroid Tab*) 75 mcg PO 0600 [facility] Last Admin: 06/04/16 06:16 Dose: 75 mcg Lorazepam (Ativan Inj*) 0.5 mg IV BEDTIME PRN PRN Reason: SLEEP Last Admin: 06/03/16 21:14 Dose: 0.5 mg Metoprolol Tartrate (Lopressor Tab*) 25 mg PO BID [facility] Last Admin: 06/04/16 09:05 Dose: 25 mg Morphine Sulfate (Morphine Inj (Syringe)*) 1 mg IV Q4H PRN PRN Reason: AGITATION Ondansetron HCl (Zofran Inj*) 4 mg IV Q6H PRN PRN Reason: NAUSEA Pantoprazole Sodium (Protonix Iv*) 40 mg IV 1400 [facility] Last Admin: 06/04/16 12:46 Dose: 40 mg Sertraline HCl (Zoloft*) 50 mg PO BEDTIME [facility] Last Admin: 06/03/16 21:18 Dose: 50 mg Terazosin HCl (Hytrin Cap*) 1 mg PO BEDTIME [facility] Last Admin: 06/03/16 21:18 Dose: 1 mg Vital Signs 06/03/16 06/03/16 06/03/16 17:00 17:30 18:00 Temperature Pulse Rate 99 103 Respiratory 22 22 25 Rate Blood Pressure (mmHg) O2 Sat by Pulse 90 91 Oximetry 06/03/16 06/03/16 06/03/16 18:30 19:00 19:12 Temperature Pulse Rate 107 102 101 Respiratory 22 23 26 Rate Blood Pressure 156/100 (mmHg) O2 Sat by Pulse 92 90 92 Oximetry 06/03/16 06/03/16 06/03/16 19:15 19:30 19:45 Temperature Pulse Rate 101 104 114 Respiratory 26 23 22 Rate Blood Pressure 129/101 131/67 132/66 (mmHg) O2 Sat by Pulse 88 93 91 Oximetry 06/03/16 06/03/16 06/03/16 19:53 20:00 20:30 Temperature 101.1 F Pulse Rate 113 101 Respiratory 25 22 Rate Blood Pressure 104/75 (mmHg) O2 Sat by Pulse 90 93 Oximetry 06/03/16 06/03/16 06/03/16 21:00 21:14 21:18 Temperature Pulse Rate 110 102 Respiratory 26 22 21 Rate Blood Pressure 99/83 130/55 (mmHg) O2 Sat by Pulse 89 91 Oximetry 06/03/16 06/03/16 06/03/16 21:30 21:59 22:30 Temperature Pulse Rate 97 105 80 Respiratory 20 21 21 Rate Blood Pressure (mmHg) O2 Sat by Pulse 92 88 91 Oximetry 06/03/16 06/03/16 06/03/16 22:55 23:00 23:04 Temperature Pulse Rate 79 76 Respiratory 22 20 17 Rate Blood Pressure 84/44 90/54 (mmHg) O2 Sat by Pulse 92 92 Oximetry 06/03/16 06/03/16 06/03/16 23:07 23:30 23:37 Temperature 100.1 F Pulse Rate 78 75 Respiratory 19 22 Rate Blood Pressure 106/57 (mmHg) O2 Sat by Pulse 93 90 Oximetry 06/04/16 06/04/16 06/04/16 00:00 00:04 00:16 Temperature Pulse Rate 102 77 76 Respiratory 23 22 20 Rate Blood Pressure 112/51 (mmHg) O2 Sat by Pulse 91 91 91 Oximetry 06/04/16 06/04/16 06/04/16 00:30 01:00 01:02 Temperature Pulse Rate 73 79 78 Respiratory 19 18 19 Rate Blood Pressure (mmHg) O2 Sat by Pulse 94 93 92 Oximetry 06/04/16 06/04/16 06/04/16 01:05 01:30 02:00 Temperature Pulse Rate 80 101 75 Respiratory 19 19 20 Rate Blood Pressure 113/54 (mmHg) O2 Sat by Pulse 93 94 94 Oximetry 06/04/16 06/04/16 06/04/16 02:02 02:19 02:30 Temperature Pulse Rate 78 76 Respiratory 20 20 Rate Blood Pressure 113/92 (mmHg) O2 Sat by Pulse 94 94 Oximetry 06/04/16 06/04/16 06/04/16 03:00 03:30 03:49 Temperature 99.3 F Pulse Rate 79 82 Respiratory 18 20 Rate Blood Pressure 125/84 (mmHg) O2 Sat by Pulse 93 93 Oximetry 06/04/16 06/04/16 06/04/16 04:00 04:10 04:30 Temperature Pulse Rate 80 84 79 Respiratory 21 20 20 Rate Blood Pressure 134/93 132/53 (mmHg) O2 Sat by Pulse 92 91 93 Oximetry 06/04/16 06/04/16 06/04/16 05:00 05:30 06:00 Temperature Pulse Rate 86 82 85 Respiratory 22 23 21 Rate Blood Pressure 127/59 128/70 (mmHg) O2 Sat by Pulse 90 95 94 Oximetry 06/04/16 06/04/16 06/04/16 06:30 07:00 07:27 Temperature 99.6 F Pulse Rate 79 83 Respiratory 20 17 Rate Blood Pressure 130/71 (mmHg) O2 Sat by Pulse 94 96 Oximetry 06/04/16 06/04/16 06/04/16 07:30 08:00 08:30 Temperature Pulse Rate 82 68 76 Respiratory 20 18 18 Rate Blood Pressure 120/45 (mmHg) O2 Sat by Pulse 95 96 93 Oximetry 06/04/16 06/04/16 06/04/16 09:00 09:30 10:00 Temperature Pulse Rate 78 82 63 Respiratory 17 22 17 Rate Blood Pressure 139/61 (mmHg) O2 Sat by Pulse 92 89 93 Oximetry 06/04/16 06/04/16 06/04/16 10:30 11:00 11:27 Temperature 98.0 F Pulse Rate 52 58 Respiratory 17 15 Rate Blood Pressure 125/40 (mmHg) O2 Sat by Pulse 95 94 Oximetry 06/04/16 06/04/16 06/04/16 11:30 12:00 12:30 Temperature Pulse Rate 53 60 61 Respiratory 16 16 15 Rate Blood Pressure 119/43 (mmHg) O2 Sat by Pulse 97 97 98 Oximetry 06/04/16 06/04/16 06/04/16 13:00 13:30 14:00 Temperature Pulse Rate 60 57 52 Respiratory 15 16 16 Rate Blood Pressure 116/63 96/36 (mmHg) O2 Sat by Pulse 97 89 95 Oximetry 06/04/16 06/04/16 06/04/16 14:03 14:04 14:10 Temperature Pulse Rate 52 53 56 Respiratory 16 16 15 Rate Blood Pressure 106/37 115/39 115/45 (mmHg) O2 Sat by Pulse 96 96 94 Oximetry 06/04/16 06/04/16 06/04/16 14:30 15:00 15:30 Temperature Pulse Rate 62 66 73 Respiratory 15 16 21 Rate Blood Pressure (mmHg) O2 Sat by Pulse 94 96 96 Oximetry 06/04/16 06/04/16 15:53 16:00 Temperature 98.3 F Pulse Rate 74 Respiratory 21 Rate Blood Pressure (mmHg) O2 Sat by Pulse 98 Oximetry Oxygen Devices in Use Now: Nasal Cannula Appearance: sitting up in bed, eating turkey sandwich, bolden with red blood Eyes: No Scleral Icterus, PERRLA Ears/Nose/Mouth/Throat: Clear Oropharnyx, Mucous Membranes Moist Neck: NL Appearance and Movements; NL JVP, Trachea Midline Respiratory: Symmetrical Chest Expansion and Respiratory Effort, Clear to Auscultation Cardiovascular: RRR Abdominal: NL Sounds; No Tenderness; No Distention, No Hepatosplenomegaly Extremities: - - trace LE edema Skin: No Rash or Ulcers Neurological: - - AOX0, able to feed himself but unable to say name or identify family. Result Diagrams: 06/04/16 10:00 06/04/16 05:16 Additional Lab and Data: Lab Results 06/02/16 Range/Units 22:15 Patient Temperature Not Reportable ABG pH 7.22 L (7.35-7.45) ABG pCO2 55 H (35-45) mmHg ABG pO2 67 L (80-100) mmHg ABG HCO3 20.6 (19-31) mmol/L ABG O2 Saturation 96.2 (95-98) % ABG Base Excess -5.4 L (-2.0-2.0) Respiration Rate Not Reportable O2 Delivery Device non rebreather Ventilator Type Not Reportable Vent Mode Not Reportable FiO2 100 Inspiratory Time Not Reportable PEEP Not Reportable Pressure Support Not Reportable Pressure Control Not Reportable EPAP Not Reportable IPAP Not Reportable BiPAP Not Reportable Microbiology and Other Data: Microbiology 06/03/16 01:15 Influenza Types A,B Antigen (BHAVESH) - Final Nasal Specimen received for Influenza A/B Molecular testing Assess/Plan/Problems-Billing Assessment: 81 yo M h/o AVR, CHF, CAD, CKD, DM2, Alzheimer's p/w decompensated acute diastolic heart failure exacerbation in setting of acute myocardial infarction with stay complicated by acute urinary retention and gross hematuria - Patient Problems (1) Acute exacerbation of CHF (congestive heart failure) Comment: diastolic. Improved with lasix overnight hold lasix tomorrow and assess prior to administration bolden replaced Suspect decompensation in setting of [place] (2) Urinary retention Comment: bolden replaced (3) Hematuria Comment: trend H/H (4) Acute myocardial infarction Comment: Acute FL heparin gtt stopped in setting of hematuria c/w ASA, beta darin, statin check EKG in AM (5) Acute on chronic renal failure Comment: In setting of ACS, CHF exacerbation repeat lab testing in AM (6) Diabetes Current Visit: Yes Status: Acute Code(s): E11.9 - TYPE 2 DIABETES MELLITUS WITHOUT COMPLICATIONS SNOMED Code(s): 56845906 Comment: ISS (7) DVT prophylaxis Comment: SCDs in setting of hematuria (8) DNR (do not resuscitate) Comment: MOLST completed with family
[2016-06-04 17:22] LABS: Hematocrit 28 % (42-52); Hemoglobin 9.1 g/dl (14.0-18.0)
[2016-06-04] MEDS: Terazosin CAP* 1 MG PO SCH (20:43)
[2016-06-04] MEDS: Sertraline* 50 MG TAB PO SCH (20:44)
[2016-06-04] MEDS: Morphine INJ* 2 MG/ML 1 ML CARPUJECT IV PRN (22:30)
[2016-06-05] MEDS: Morphine INJ* 2 MG/ML 1 ML CARPUJECT IV PRN (02:22)
[2016-06-05 05:56] LABS: Hematocrit 25 % (42-52); Hemoglobin 8.3 g/dl (14.0-18.0); Mean Corpuscular HGB Conc 33 g/dl (31-36); Mean Corpuscular Hemoglobin 32 pg (27-31); Mean Corpuscular Volume 98 fL (80-94); Mean Platelet Volume 10 um3 (7.4-10.4); Red Blood Count 2.57 10^6/ul (4.0-5.4); Red Cell Distribution Width 14 % (10.5-15); White Blood Count 8.7 10^3/ul (3.5-10.8)
[2016-06-05 06:09] LABS: BUN/Creatinine Ratio 19.4 (8-20); Calcium 8.2 mg/dL (8.6-10.3); EGFR Non-African American 18.6 (>60); Potassium 4.5 mmol/L (3.5-5.0)
[2016-06-05 06:13] LABS: Troponin I 17.11 ng/mL (<0.04)
[2016-06-05] MEDS: Levothyroxine TAB* 75 MCG TAB PO SCH (06:27)
[2016-06-05] MEDS: Insulin LISPRO* 1 UNITS UNIT SUBCUT SCH ×4 (08:30→20:46)
[2016-06-05] MEDS: Aspirin TAB* 325 MG PO SCH (09:20)
[2016-06-05] MEDS: Metoprolol Tartrate TAB* 25 MG PO SCH ×2 (09:20→21:25)
[2016-06-05] MEDS: Docusate CAP* 100 MG PO SCH ×2 (09:20→21:24)
--- NOTE | 2016-06-05 09:48 | PN ---
Subjective Date of Service: 06/05/16 Interval History: Seen with sister at bedside Events from overnight reviewed. Clots developed in bolden and CBI initiated. This AM urine in bolden bag is light pink. Pt is up and drinking juice, interactive for first time since admission. He has no complaints. He specifically denies chest pain or discomfort, SOB. Objective Active Medications: Acetaminophen (Tylenol Tab*) 650 mg PO Q6H PRN PRN Reason: FEVER/PAIN Last Admin: 06/03/16 19:55 Dose: 650 mg Albuterol (Ventolin 2.5 Mg/3 Ml Neb.Stefanie*) 2.5 mg INH Q2H PRN PRN Reason: SOB/WHEEZING Aspirin (Aspirin Tab*) 325 mg PO DAILY [facility] Last Admin: 06/05/16 09:20 Dose: 325 mg Docusate Sodium (Colace Cap*) 200 mg PO BID BRONWYN Last Admin: 06/05/16 09:20 Dose: 200 mg Heparin Sodium (Porcine) (Heparin Vial(*)) 0 units IV .PER PROTOCOL BRONWYN PRN Reason: Protocol Last Admin: 06/03/16 09:41 Dose: 6,000 units Heparin Sodium/Dextrose (Heparin Drip 25,000 Units(*)) 25,000 units in 500 mls @ 0 mls/hr IVPB .PER RATE BRONWYN; Per Protocol PRN Reason: Protocol Last Admin: 06/04/16 10:29 Dose: 16 mls/hr Insulin Human Lispro (Humalog*) 0 units SUBCUT ACHS BRON[facility] PRN Reason: Protocol Last Admin: 06/05/16 08:30 Dose: Not Given Levothyroxine Sodium (Synthroid Tab*) 75 mcg PO 0600 [facility] Last Admin: 06/05/16 06:27 Dose: 75 mcg Lorazepam (Ativan Inj*) 0.5 mg IV BEDTIME PRN PRN Reason: SLEEP Last Admin: 06/03/16 21:14 Dose: 0.5 mg Metoprolol Tartrate (Lopressor Tab*) 25 mg PO BID [facility] Last Admin: 06/05/16 09:20 Dose: 25 mg Morphine Sulfate (Morphine Inj (Syringe)*) 1 mg IV Q4H PRN PRN Reason: AGITATION Last Admin: 06/05/16 02:22 Dose: 1 mg Ondansetron HCl (Zofran Inj*) 4 mg IV Q6H PRN PRN Reason: NAUSEA Pantoprazole Sodium (Protonix Iv*) 40 mg IV 1400 [facility] Last Admin: 06/04/16 12:46 Dose: 40 mg Sertraline HCl (Zoloft*) 50 mg PO BEDTIME [facility] Last Admin: 06/04/16 20:44 Dose: 50 mg Terazosin HCl (Hytrin Cap*) 1 mg PO BEDTIME [facility] Last Admin: 06/04/16 20:43 Dose: 1 mg Vital Signs 06/04/16 06/04/16 06/04/16 10:00 10:30 11:00 Temperature Pulse Rate 63 52 58 Respiratory 17 17 15 Rate Blood Pressure 125/40 (mmHg) O2 Sat by Pulse 93 95 94 Oximetry 06/04/16 06/04/16 06/04/16 11:27 11:30 12:00 Temperature 98.0 F Pulse Rate 53 60 Respiratory 16 16 Rate Blood Pressure 119/43 (mmHg) O2 Sat by Pulse 97 97 Oximetry 06/04/16 06/04/16 06/04/16 12:30 13:00 13:30 Temperature Pulse Rate 61 60 57 Respiratory 15 15 16 Rate Blood Pressure 116/63 (mmHg) O2 Sat by Pulse 98 97 89 Oximetry 06/04/16 06/04/16 06/04/16 14:00 14:03 14:04 Temperature Pulse Rate 52 52 53 Respiratory 16 16 16 Rate Blood Pressure 96/36 106/37 115/39 (mmHg) O2 Sat by Pulse 95 96 96 Oximetry 06/04/16 06/04/16 06/04/16 14:10 14:30 15:00 Temperature Pulse Rate 56 62 66 Respiratory 15 15 16 Rate Blood Pressure 115/45 (mmHg) O2 Sat by Pulse 94 94 96 Oximetry 06/04/16 06/04/16 06/04/16 15:30 15:53 16:00 Temperature 98.3 F Pulse Rate 73 74 Respiratory 21 21 Rate Blood Pressure (mmHg) O2 Sat by Pulse 96 98 Oximetry 06/04/16 06/04/16 06/04/16 16:24 16:30 16:40 Temperature Pulse Rate 70 67 Respiratory 16 15 Rate Blood Pressure 108/50 113/40 (mmHg) O2 Sat by Pulse 99 99 Oximetry 06/04/16 06/04/16 06/04/16 17:00 17:04 17:06 Temperature Pulse Rate 69 70 78 Respiratory 18 16 19 Rate Blood Pressure 134/45 (mmHg) O2 Sat by Pulse 95 97 97 Oximetry 06/04/16 06/04/16 06/04/16 17:20 17:30 17:41 Temperature Pulse Rate 72 76 Respiratory 16 21 Rate Blood Pressure 127/38 121/82 (mmHg) O2 Sat by Pulse 99 97 Oximetry 06/04/16 06/04/16 06/04/16 18:00 18:01 18:20 Temperature Pulse Rate 82 78 77 Respiratory 19 18 17 Rate Blood Pressure 159/133 110/65 (mmHg) O2 Sat by Pulse 90 96 98 Oximetry 06/04/16 06/04/16 06/04/16 18:30 18:40 18:46 Temperature Pulse Rate 84 75 Respiratory 21 15 16 Rate Blood Pressure 109/47 (mmHg) O2 Sat by Pulse 95 100 Oximetry 06/04/16 06/04/16 06/04/16 19:00 19:20 19:30 Temperature Pulse Rate 75 75 74 Respiratory 19 18 19 Rate Blood Pressure 119/46 132/107 (mmHg) O2 Sat by Pulse 94 95 97 Oximetry 06/04/16 06/04/16 06/04/16 19:40 19:46 20:00 Temperature 99.3 F Pulse Rate 76 83 Respiratory 17 20 Rate Blood Pressure 115/57 103/41 (mmHg) O2 Sat by Pulse 97 95 Oximetry 06/04/16 06/04/16 06/04/16 20:20 20:30 20:40 Temperature Pulse Rate 80 83 82 Respiratory 19 17 17 Rate Blood Pressure 117/49 103/86 (mmHg) O2 Sat by Pulse 98 98 99 Oximetry 06/04/16 06/04/16 06/04/16 21:00 21:20 21:30 Temperature Pulse Rate 89 85 80 Respiratory 20 17 18 Rate Blood Pressure 127/55 122/65 (mmHg) O2 Sat by Pulse 93 98 96 Oximetry 06/04/16 06/04/16 06/04/16 21:41 21:57 21:59 Temperature Pulse Rate 75 68 Respiratory 17 17 16 Rate Blood Pressure 117/51 (mmHg) O2 Sat by Pulse 94 97 Oximetry 06/04/16 06/04/16 06/04/16 22:20 22:30 22:40 Temperature Pulse Rate 71 80 72 Respiratory 17 21 18 Rate Blood Pressure 147/114 122/50 (mmHg) O2 Sat by Pulse 98 94 96 Oximetry 06/04/16 06/04/16 06/04/16 23:00 23:14 23:20 Temperature Pulse Rate 75 83 75 Respiratory 18 15 17 Rate Blood Pressure 106/48 117/39 106/39 (mmHg) O2 Sat by Pulse 100 100 97 Oximetry 06/04/16 06/04/16 06/04/16 23:30 23:39 23:40 Temperature Pulse Rate 81 79 79 Respiratory 20 16 17 Rate Blood Pressure 106/57 (mmHg) O2 Sat by Pulse 93 95 94 Oximetry 06/04/16 06/05/16 06/05/16 23:48 00:00 00:01 Temperature 100.4 F Pulse Rate 79 76 Respiratory 19 19 Rate Blood Pressure 108/44 (mmHg) O2 Sat by Pulse 93 93 Oximetry 06/05/16 06/05/16 06/05/16 00:30 01:00 01:30 Temperature Pulse Rate 75 75 79 Respiratory 17 19 20 Rate Blood Pressure 108/47 99/50 (mmHg) O2 Sat by Pulse 92 95 95 Oximetry 06/05/16 06/05/16 06/05/16 01:34 01:54 02:00 Temperature Pulse Rate 87 80 Respiratory 25 19 17 Rate Blood Pressure 125/48 118/57 (mmHg) O2 Sat by Pulse 93 95 Oximetry 06/05/16 06/05/16 06/05/16 02:10 02:22 02:30 Temperature Pulse Rate 85 80 Respiratory 18 23 19 Rate Blood Pressure 116/50 (mmHg) O2 Sat by Pulse 100 97 Oximetry 06/05/16 06/05/16 06/05/16 02:58 03:00 03:30 Temperature Pulse Rate 75 76 Respiratory 16 16 16 Rate Blood Pressure 112/49 113/54 (mmHg) O2 Sat by Pulse 97 94 Oximetry 06/05/16 06/05/16 06/05/16 03:53 04:00 04:30 Temperature 98.7 F Pulse Rate 72 77 Respiratory 12 13 18 Rate Blood Pressure 131/56 132/52 (mmHg) O2 Sat by Pulse 96 95 Oximetry 06/05/16 06/05/16 06/05/16 05:00 05:30 06:00 Temperature Pulse Rate 74 74 75 Respiratory 17 14 17 Rate Blood Pressure 114/79 103/48 113/68 (mmHg) O2 Sat by Pulse 95 96 96 Oximetry 06/05/16 06/05/1606/05/17 06:30 07:00 07:30 Temperature Pulse Rate 75 71 73 Respiratory 16 15 18 Rate Blood Pressure 107/46 125/49 89/52 (mmHg) O2 Sat by Pulse 94 97 91 Oximetry 06/05/16 06/05/16 06/05/16 08:00 08:30 09:00 Temperature 99.2 F Pulse Rate 75 74 85 Respiratory 19 17 18 Rate Blood Pressure 92/79 94/80 117/58 (mmHg) O2 Sat by Pulse 95 96 96 Oximetry Oxygen Devices in Use Now: Nasal Cannula Appearance: sitting up, drinking juice, NAD Eyes: No Scleral Icterus, PERRLA Ears/Nose/Mouth/Throat: Mucous Membranes Moist Neck: NL Appearance and Movements; NL JVP, Trachea Midline Respiratory: Symmetrical Chest Expansion and Respiratory Effort, Clear to Auscultation Cardiovascular: RRR, - - 2/6 ESCOBAR RUSB Abdominal: NL Sounds; No Tenderness; No Distention, No Hepatosplenomegaly, - - mild distention Extremities: - - trace LE edema Skin: No Rash or Ulcers Neurological: - - AOx1 to self. Can identify his sister at bedside. Able to feed himself. Cannot name that he is in hospital nor the year. Result Diagrams: 06/05/16 05:25 06/05/16 05:25 Additional Lab and Data: Lab Results 06/02/16 Range/Units 22:15 Patient Temperature Not Reportable ABG pH 7.22 L (7.35-7.45) ABG pCO2 55 H (35-45) mmHg ABG pO2 67 L (80-100) mmHg ABG HCO3 20.6 (19-31) mmol/L ABG O2 Saturation 96.2 (95-98) % ABG Base Excess -5.4 L (-2.0-2.0) Respiration Rate Not Reportable O2 Delivery Device non rebreather Ventilator Type Not Reportable Vent Mode Not Reportable FiO2 100 Inspiratory Time Not Reportable PEEP Not Reportable Pressure Support Not Reportable Pressure Control Not Reportable EPAP Not Reportable IPAP Not Reportable BiPAP Not Reportable Microbiology and Other Data: Microbiology 06/03/16 01:15 Influenza Types A,B Antigen (BHAVESH) - Final Nasal Specimen received for Influenza A/B Molecular testing Assess/Plan/Problems-Billing Assessment: 81 yo M h/o AVR, CHF, CAD, CKD, DM2, Alzheimer's p/w decompensated acute diastolic heart failure exacerbation in setting of acute myocardial infarction with stay complicated by acute urinary retention and gross hematuria - Patient Problems (1) Acute exacerbation of CHF (congestive heart failure) Comment: diastolic. Improved with lasix hold lasix today bolden in place Suspect decompensation in setting of acute VT (2) Urinary retention Comment: bolden replaced (3) Hematuria Comment: H/H has been stable stop CBI. If urine become increasingly red or develops clots will restart Suspect will need to leave with bolden in place. heparin has been stopped hematuria precluding LHC (4) Acute myocardial infarction Comment: Acute VT heparin gtt stopped in setting of hematuria c/w ASA, beta darin, statin EKG with inferolateral STD but no q waves (5) Acute on chronic renal failure Comment: In setting of ACS, CHF exacerbation hold lasix today (6) Diabetes Current Visit: Yes Status: Acute Code(s): E11.9 - TYPE 2 DIABETES MELLITUS WITHOUT COMPLICATIONS SNOMED Code(s): 30926282 Comment: ISS with good control (7) DVT prophylaxis Comment: SCDs in setting of hematuria (8) DNR (do not resuscitate) Comment: MOLST completed with family Status and Disposition: transfer to 4S/ In patient for continued hematuria.
[2016-06-05] MEDS: Pantoprazole IV* 40 MG IV SCH (15:14)
[2016-06-05] MEDS: Terazosin CAP* 1 MG PO SCH (21:24)
[2016-06-05] MEDS: Sertraline* 50 MG TAB PO SCH (21:25)
[2016-06-06] MEDS: Acetaminophen TAB* 325 MG PO PRN (04:31)
[2016-06-06 05:12] LABS: Hematocrit 24 % (42-52); Hemoglobin 7.7 g/dl (14.0-18.0); Mean Corpuscular HGB Conc 33 g/dl (31-36); Mean Corpuscular Hemoglobin 33 pg (27-31); Mean Corpuscular Volume 99 fL (80-94); Mean Platelet Volume 10 um3 (7.4-10.4); Red Blood Count 2.38 10^6/ul (4.0-5.4); Red Cell Distribution Width 14 % (10.5-15); White Blood Count 7.6 10^3/ul (3.5-10.8)
[2016-06-06 05:21] LABS: BUN/Creatinine Ratio 21.2 (8-20); EGFR African American 21.7 (>60); EGFR Non-African American 16.9 (>60); Potassium 4.3 mmol/L (3.5-5.0)
[2016-06-06] MEDS: Levothyroxine TAB* 75 MCG TAB PO SCH (06:01)
[2016-06-06] MEDS: Insulin LISPRO* 1 UNITS UNIT SUBCUT SCH ×4 (08:50→20:57)
--- NOTE | 2016-06-06 09:28 | RAD ---
INDICATION: Evaluate fluid versus consolidation COMPARISON: June 02, 2016 TECHNIQUE: PA and lateral dual-energy views were obtained. FINDINGS: Bones/Soft Tissues: There are no acute bony findings. There is sternotomy. Cardiomediastinal: The cardiomediastinal silhouette is normal. Interstitial edema has resolved Lungs: There are no infiltrates. There is mild basilar interstitial change with significant improvement. There is hyperinflation. Pleura: Small bilateral pleural effusions. Other: None IMPRESSION: RESOLUTION OF VASCULAR CONGESTIVE CHANGES. SUSPECT MILD CHRONIC INTERSTITIAL CHANGES WITH HYPERINFLATION. SMALL BILATERAL PLEURAL EFFUSIONS.
--- NOTE | 2016-06-06 09:57 | PN ---
Progress Note - Progress Note Note: Stopped by to see patient who is resting with his daughter Rosie in the room. The patient was being considered for cardiac cath per Dr. Hager's note, because his echocardiogram on early hospitalization showed good cardiac function with EF of 55%. However, since that time the patient developed gross hematuria and anticoagulation was d/c'd, so cardiac cath is not really a reasonable option as the patient could not be eligible for stenting or bypass. The daughter is wondering if urology consultation would be reasonable to evaluate the hematuria etiology. Also, the patient has very borderline renal function and has had reactions to contrast in the past, so might not be eligible for further imaging. At first, the family was determined to pursue no further work-up or invasive procedures, and the patient's proxy still has thisorientation, but the rest of the family maybe leaning towards more life-prolonging measures. We have tried to reach Dr. 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 Another post-NV echocardiogram might be reasonable to assess how much impairment was caused by his ischemic infarction.
[2016-06-06] MEDS: Metoprolol Tartrate TAB* 25 MG PO SCH ×2 (10:09→20:52)
[2016-06-06] MEDS: Docusate CAP* 100 MG PO SCH ×2 (10:12→20:51)
[2016-06-06] MEDS: Aspirin TAB* 325 MG PO SCH (10:12)
[2016-06-06] MEDS ORDERED: NS 0.9% 1000 ML* 1,000 ML IV SCH (10:45)
[2016-06-06] MEDS: Polyethylene Glycol 3350* 17 GM PACKET PO PRN (11:02)
[2016-06-06] MEDS: Pantoprazole IV* 40 MG IV SCH (13:11)
[2016-06-06] MEDS ORDERED: Atorvastatin* 80 MG TAB PO ONE (15:36)
--- NOTE | 2016-06-06 15:44 | PN ---
Subjective Date of Service: 06/06/16 Interval History: Seen and examined with daughter Pt more alert with family, ate breakfast No chest pain, no SOB Bolden bag still with pink tinged urine Objective Active Medications: Acetaminophen (Tylenol Tab*) 650 mg PO Q6H PRN PRN Reason: FEVER/PAIN Last Admin: 06/06/16 04:31 Dose: 650 mg Albuterol (Ventolin 2.5 Mg/3 Ml Neb.Stefanie*) 2.5 mg INH Q2H PRN PRN Reason: SOB/WHEEZING Aspirin (Aspirin Ec Low Dose*) 81 mg PO DAILY [facility] Atorvastatin Calcium (Lipitor*) 80 mg PO 2100 ONE Stop: 06/06/16 15:37 Docusate Sodium (Colace Cap*) 200 mg PO BID [facility] Last Admin: 06/06/16 10:12 Dose: 200 mg Sodium Chloride (Ns 0.9% 1000 Ml*) 1,000 mls @ 125 mls/hr IV PER RATE [facility] Stop: 06/06/16 18:44 Last Admin: 06/06/16 11:02 Dose: 125 mls/hr Insulin Human Lispro (Humalog*) 0 units SUBCUT ACHS [facility] PRN Reason: Protocol Last Admin: 06/06/16 13:11 Dose: 2 units Levothyroxine Sodium (Synthroid Tab*) 75 mcg PO 0600 [facility] Last Admin: 06/06/16 06:01 Dose: 75 mcg Metoprolol Tartrate (Lopressor Tab*) 25 mg PO BID [facility] Last Admin: 06/06/16 10:09 Dose: Not Given Morphine Sulfate (Morphine Inj (Syringe)*) 1 mg IV Q4H PRN PRN Reason: AGITATION Last Admin: 06/05/16 02:22 Dose: 1 mg Ondansetron HCl (Zofran Inj*) 4 mg IV Q6H PRN PRN Reason: NAUSEA Pantoprazole Sodium (Protonix Iv*) 40 mg IV 1400 [facility] Last Admin: 06/06/16 13:11 Dose: 40 mg Polyethylene Glycol/Electrolytes (Miralax*) 17 gm PO DAILY PRN PRN Reason: CONSTIPATION Last Admin: 06/06/16 11:02 Dose: 17 gm Sertraline HCl (Zoloft*) 50 mg PO BEDTIME [facility] Last Admin: 06/05/16 21:25 Dose: 50 mg Terazosin HCl (Hytrin Cap*) 1 mg PO BEDTIME [facility] Last Admin: 06/05/16 21:24 Dose: 1 mg Vital Signs 06/05/16 06/05/16 06/05/16 16:00 19:21 20:00 Temperature Pulse Rate 62 86 Respiratory 16 16 Rate Blood Pressure 121/58 (mmHg) O2 Sat by Pulse 98 98 98 Oximetry 06/05/16 06/06/16 06/06/16 23:46 00:00 03:25 Temperature 99.4 F 100.3 F Pulse Rate 65 67 Respiratory 16 16 Rate Blood Pressure 108/42 123/59 (mmHg) O2 Sat by Pulse 97 98 99 Oximetry 06/06/16 06/06/16 06/06/16 07:19 08:00 08:17 Temperature 99.7 F Pulse Rate 61 70 Respiratory 20 18 16 Rate Blood Pressure 118/42 (mmHg) O2 Sat by Pulse 96 95 Oximetry 06/06/16 11:23 Temperature 98.7 F Pulse Rate 63 Respiratory 18 Rate Blood Pressure 101/46 (mmHg) O2 Sat by Pulse 99 Oximetry Oxygen Devices in Use Now: Nasal Cannula Appearance: sleeping, NAD Eyes: No Scleral Icterus, PERRLA Ears/Nose/Mouth/Throat: Clear Oropharnyx, Mucous Membranes Moist Neck: NL Appearance and Movements; NL JVP, Trachea Midline Respiratory: Symmetrical Chest Expansion and Respiratory Effort, Clear to Auscultation Cardiovascular: - - 2/6 ESCOBAR Abdominal: NL Sounds; No Tenderness; No Distention, No Hepatosplenomegaly Lymphatic: No Cervical Adenopathy Extremities: - - no edema Skin: No Rash or Ulcers Neurological: - - AOx1 to self Result Diagrams: 06/06/16 04:31 06/06/16 04:31 Additional Lab and Data: Lab Results 06/02/16 Range/Units 22:15 Patient Temperature Not Reportable ABG pH 7.22 L (7.35-7.45) ABG pCO2 55 H (35-45) mmHg ABG pO2 67 L (80-100) mmHg ABG HCO3 20.6 (19-31) mmol/L ABG O2 Saturation 96.2 (95-98) % ABG Base Excess -5.4 L (-2.0-2.0) Respiration Rate Not Reportable O2 Delivery Device non rebreather Ventilator Type Not Reportable Vent Mode Not Reportable FiO2 100 Inspiratory Time Not Reportable PEEP Not Reportable Pressure Support Not Reportable Pressure Control Not Reportable EPAP Not Reportable IPAP Not Reportable BiPAP Not Reportable Microbiology and Other Data: Microbiology 06/03/16 01:15 Influenza Types A,B Antigen (BHAVESH) - Final Nasal Specimen received for Influenza A/B Molecular testing Assess/Plan/Problems-Billing Assessment: 81 yo M h/o AVR, CHF, CAD, CKD, DM2, Alzheimer's p/w decompensated acute diastolic heart failure exacerbation in setting of acute myocardial infarction with stay complicated by acute urinary retention and gross hematuria - Patient Problems (1) Acute exacerbation of CHF (congestive heart failure) Comment: diastolic. Improved with lasix Holding lasix CXR with resolved edema bolden in place Suspect decompensation in setting of acute IL TTE s/p completion of event pending acquisistion (2) Urinary retention Comment: bolden replaced (3) Hematuria Comment: H/H has been stable trend stopped CBI 06/05/16. Suspect will need to leave with bolden in place. heparin has been stopped hematuria precluding LHC (4) Acute myocardial infarction Comment: Acute IL heparin gtt stopped in setting of hematuria c/w ASA, beta darin, statin No ACEi in setting of AKF EKG with inferolateral STD but no q waves (5) Acute on chronic renal failure Comment: In setting of ACS, CHF exacerbation hold lasix today Check TTE 1L NS slowly Dr. Espinoza given FYI that his patient is hospitalized. Not asked for consult (6) Diabetes Current Visit: Yes Status: Acute Code(s): E11.9 - TYPE 2 DIABETES MELLITUS WITHOUT COMPLICATIONS SNOMED Code(s): 21733702 Comment: ISS with good control (7) DVT prophylaxis Comment: SCDs in setting of hematuria (8) DNR (do not resuscitate) Comment: MOLST completed with family Status and Disposition: Home when hematuria stable and kidney fxn stable. Hospice following. Patient's daughter Rosie is HCP. Patient's son has had differing opinions about goals of care. Decisions that need HCP direction should be made in conjunction with Rosie not patient's son.
--- NOTE | 2016-06-06 16:35 | ECHO ---
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 Technical Comments: The study is technically limited due to the patient's smoking history. Completed at 1300. Left Ventricle: Posterior wall hypertrophy is observed. The estimated ejection fraction is 50-55%. Post surgical hypokinesis of the interventricular septum is observed consistent with valve replacement. There is no consistent Doppler evidence of clinically significant diastolic dysfunction. Left Atrium: The left atrial chamber size is normal. Right Ventricle: The right ventricular cavity size is normal. The right ventricular global systolic function is normal. The septum has abnormal paradoxical motion consistent with post-operative pressure. Right Atrium: The right atrial cavity size is normal. Aortic Valve: The aortic valve structure is not well visualized. There is no evidence of aortic regurgitation. A bio-prosthetic aortic valve is present. and functioning normally. The prosthetic aortic valve leaflets are normal. Mitral Valve: There is mitral annular calcification. The mitral valve leaflets are moderately thickened. There is mild mitral regurgitation. There is no evidence of mitral stenosis. Tricuspid Valve: The tricuspid valve leaflets are normal. There is mild tricuspid regurgitation. No pulmonary hypertension is noted. There is no tricuspid stenosis. Pulmonic Valve: The pulmonic valve appears normal. There is no evidence of pulmonic regurgitation. There is no pulmonic stenosis. Pericardium: A pericardial fat pad is visualized. Aorta: There is no dilatation of the ascending aorta. There is no dilatation of the aortic arch. There is no dilation of the aortic root. Pulmonary Artery: The main pulmonary artery appears normal. Venous: The inferior vena cava appears normal in size. There is an approximate 50% respiratory change in the inferior vena cava dimension. Summary: There are no significant changes when compared to the previous study done on 06/03/2016, no overt sig changes noticed. Conclusions The estimated ejection fraction is 50-55%. Post surgical hypokinesis of the interventricular septum is observed consistent with valve replacement. The septum has abnormal paradoxical motion consistent with post-operative pressure. A bio-prosthetic aortic valve is present. and functioning normally. There is mild mitral regurgitation. There is mild tricuspid regurgitation. Measurements Name Value Normal Range RVIDd (AP) 2D 2.5 cm (0.9 - 2.6) RVDdMajor (2D) 3.2 cm (2.2 - 4.4) RAd ISD 4CH 6 cm (3.4 - 4.9) RA (A4C)W 3.4 cm (2.9 - 4.6) IVSd (2D) 1 cm (0.6 - 1) LVPWd (2D) 1.4 cm (0.6 - 1) LVIDd (2D) 4.8 cm (3.6 - 5.4) LVIDs (2D) 3 cm - LV FS (2D) 37 % (25 - 45) Ao root diameter (2D) 1.7 cm (2.1 - 3.5) Ascending Ao 3 cm (2.1 - 3.4) Aortic arch 2 cm (1.8 - 3.4) LA dimension (AP) 2D 4.1 cm (2.3 - 3.8) LAd ISD 4CH 6 cm (2.9 - 5.3) LA ISD 4CH W 6 cm (2.5 - 4.5) Name Value Normal Range MV E-wave Vmax 1.4 m/sec - MV deceleration time 242 msec - MV A-wave Vmax 1.2 m/sec - MV E:A ratio 1.18 ratio - LV septal e' Vmax 0.08 m/sec - LV lateral e' Vmax 0.09 m/sec - LV E:e' septal ratio 17.5 ratio - LV E:e' lateral ratio 15.5 ratio - Name Value Normal Range AV Vmax 2.7 m/sec - AV VTI 69 cm - AV peak gradient 28.02 mmHg - AV mean gradient 12.53 mmHg - LVOT diameter 1.8 cm - LVOT Vmax 0.7 m/sec - LVOT VTI 21.7 cm - LVOT peak gradient 2.08 mmHg - LVOT mean gradient 1.09 mmHg - SV LVOT 58 ml - JAS (continuity Vmax) 0.7 cm2 - JAS (continuity VTI) 0.9 cm2 - Name Value Normal Range TR Vmax 2.5 m/sec - TR peak gradient 24 mmHg - RAP 8 mmHg - RVSP 32 mmHg - IVC diameter 2 cm - Name Value Normal Range PV Vmax 1 m/sec - PV peak gradient 3.91 mmHg -
[2016-06-06] MEDS: Sertraline* 50 MG TAB PO SCH (20:51)
[2016-06-06] MEDS: Terazosin CAP* 1 MG PO SCH (20:53)
[2016-06-06] MEDS: Morphine INJ* 2 MG/ML 1 ML CARPUJECT IV PRN (23:35)
[2016-06-07] MEDS: Polyethylene Glycol 3350* 17 GM PACKET PO PRN (00:05)
[2016-06-07] MEDS: Levothyroxine TAB* 75 MCG TAB PO SCH (05:44)
[2016-06-07 06:01] LABS: Hematocrit 23 % (42-52); Hemoglobin 7.5 g/dl (14.0-18.0); Mean Corpuscular HGB Conc 33 g/dl (31-36); Mean Corpuscular Hemoglobin 33 pg (27-31); Mean Corpuscular Volume 98 fL (80-94); Mean Platelet Volume 10 um3 (7.4-10.4); Red Blood Count 2.31 10^6/ul (4.0-5.4); Red Cell Distribution Width 14 % (10.5-15); White Blood Count 8.5 10^3/ul (3.5-10.8)
[2016-06-07 06:21] LABS: BUN/Creatinine Ratio 24.4 (8-20); EGFR African American 25.2 (>60); EGFR Non-African American 19.6 (>60); Potassium 4.8 mmol/L (3.5-5.0)
[2016-06-07] MEDS: Docusate CAP* 100 MG PO SCH ×2 (08:26→20:20)
[2016-06-07] MEDS: Aspirin EC Low Dose* 81 MG TAB.EC PO SCH (08:26)
[2016-06-07] MEDS: Insulin LISPRO* 1 UNITS UNIT SUBCUT SCH ×4 (08:26→20:23)
[2016-06-07] MEDS: Metoprolol Tartrate TAB* 25 MG PO SCH ×2 (08:26→20:22)
[2016-06-07] MEDS ORDERED: Magnesium Hydroxide LIQ* 30 ML UDC PO PRN (11:34)
[2016-06-07] MEDS ORDERED: Magnesium Hydroxide LIQ* 30 ML UDC PO ONE (11:34)
[2016-06-07] MEDS ORDERED: Senna TAB PO ONE (11:35)
[2016-06-07] MEDS: Pantoprazole IV* 40 MG IV SCH (14:00)
--- NOTE | 2016-06-07 14:46 | PN ---
Progress Note - Progress Note SOAP: Subjective: Pt says he feels ok. He denies being SOB though family reports he is when he gets up. Objective: WNWD man sitting up in a chair, alert but vague. HRR, systolic murmur audible Lungs CTA, respirations easy No LE edema Assessment: 81 yo man admitted with acute systolic/diastolic heart failure, sustained an OH while here, catheterization was being considered but not possible due to development of hematuria while on anticoagulation. Acute on chronic renal failure with creat today at 3.07. LUZ yesterday did not show any change from previous. Although family has been considering a palliative approach, pt does not meet criteria for hospice at this time. It may be that his cardiac and renal function continue to deteriorate he will meet criteria in coming weeks. I have informed the family that [facility] does not do well after d/c. Plan: Discussed with Dr. Roberto and CM. Pt likely will go home with VNS.
--- NOTE | 2016-06-07 16:37 | PN ---
Progress Note - Progress Note Note: At nurse's request, I called pt's daughter Rosie, whom he lives with, and explained my findings to her. She verbalized understanding and appreciation for the call.
--- NOTE | 2016-06-07 20:01 | PN ---
Subjective Date of Service: 06/07/16 Interval History: Pt feels comfortable. Walked with assistance today. no CP Objective Active Medications: Acetaminophen (Tylenol Tab*) 650 mg PO Q6H PRN PRN Reason: FEVER/PAIN Last Admin: 06/06/16 04:31 Dose: 650 mg Albuterol (Ventolin 2.5 Mg/3 Ml Neb.Stefanie*) 2.5 mg INH Q2H PRN PRN Reason: SOB/WHEEZING Aspirin (Aspirin Ec Low Dose*) 81 mg PO DAILY [facility] Last Admin: 06/07/16 08:26 Dose: 81 mg Docusate Sodium (Colace Cap*) 200 mg PO BID [facility] Last Admin: 06/07/16 08:26 Dose: 200 mg Insulin Human Lispro (Humalog*) 0 units SUBCUT ACHS [facility] PRN Reason: Protocol Last Admin: 06/07/16 17:21 Dose: 2 units Levothyroxine Sodium (Synthroid Tab*) 75 mcg PO 0600 [facility] Last Admin: 06/07/16 05:44 Dose: 75 mcg Magnesium Hydroxide (Milk Of Magnesia Liq*) 30 ml PO Q6H PRN PRN Reason: CONSTIPATION Metoprolol Tartrate (Lopressor Tab*) 25 mg PO BID [facility] Last Admin: 06/07/16 08:26 Dose: 25 mg Morphine Sulfate (Morphine Inj (Syringe)*) 1 mg IV Q4H PRN PRN Reason: AGITATION Last Admin: 06/06/16 23:35 Dose: 1 mg Ondansetron HCl (Zofran Inj*) 4 mg IV Q6H PRN PRN Reason: NAUSEA Pantoprazole Sodium (Protonix Iv*) 40 mg IV 1400 [facility] Last Admin: 06/07/16 14:00 Dose: 40 mg Polyethylene Glycol/Electrolytes (Miralax*) 17 gm PO DAILY PRN PRN Reason: CONSTIPATION Last Admin: 06/07/16 00:05 Dose: 17 gm Senna (Senokot Tab*) 2 tab PO BEDTIME [facility] Sertraline HCl (Zoloft*) 50 mg PO BEDTIME [facility] Last Admin: 06/06/16 20:51 Dose: 50 mg Terazosin HCl (Hytrin Cap*) 1 mg PO BEDTIME [facility] Last Admin: 06/06/16 20:53 Dose: 1 mg Vital Signs 06/06/16 06/06/16 06/07/16 20:00 23:35 00:07 Temperature 98.4 F Pulse Rate 65 Respiratory 20 16 16 Rate Blood Pressure 121/56 (mmHg) O2 Sat by Pulse 100 Oximetry 06/07/16 06/07/16 06/07/16 00:35 01:41 04:04 Temperature 98.5 F Pulse Rate 66 73 Respiratory 20 16 16 Rate Blood Pressure 132/55 (mmHg) O2 Sat by Pulse 100 100 Oximetry 06/07/16 06/07/16 06/07/16 07:44 08:00 11:04 Temperature 99.1 F 97.3 F Pulse Rate 77 62 Respiratory 22 18 20 Rate Blood Pressure 119/53 108/54 (mmHg) O2 Sat by Pulse 98 98 Oximetry 06/07/16 06/07/16 06/07/16 11:48 12:42 15:14 Temperature 98.1 F Pulse Rate 65 65 Respiratory 16 14 Rate Blood Pressure 120/47 (mmHg) O2 Sat by Pulse 92 90 98 Oximetry 06/07/16 06/07/16 19:18 19:31 Temperature 98.6 F Pulse Rate 66 Respiratory 14 16 Rate Blood Pressure 113/45 (mmHg) O2 Sat by Pulse 98 Oximetry Oxygen Devices in Use Now: Nasal Cannula - at 2 L Appearance: 81 yo M in nAd, aAOx1, poor short term memory Eyes: No Scleral Icterus, PERRLA Ears/Nose/Mouth/Throat: NL Teeth, Lips, Gums, Mucous Membranes Moist Neck: NL Appearance and Movements; NL JVP, Trachea Midline Respiratory: Symmetrical Chest Expansion and Respiratory Effort, Clear to Auscultation Cardiovascular: NL Sounds; No Murmurs; No JVD, RRR Abdominal: NL Sounds; No Tenderness; No Distention, No Hepatosplenomegaly Lymphatic: No Cervical Adenopathy Extremities: No Edema, No Clubbing, Cyanosis Skin: No Rash or Ulcers, No Nodules or Sclerosis Neurological: NL Muscle Strength and Tone Result Diagrams: 06/07/16 05:40 06/07/16 05:40 Additional Lab and Data: Lab Results 06/02/16 Range/Units 22:15 Patient Temperature Not Reportable ABG pH 7.22 L (7.35-7.45) ABG pCO2 55 H (35-45) mmHg ABG pO2 67 L (80-100) mmHg ABG HCO3 20.6 (19-31) mmol/L ABG O2 Saturation 96.2 (95-98) % ABG Base Excess -5.4 L (-2.0-2.0) Respiration Rate Not Reportable O2 Delivery Device non rebreather Ventilator Type Not Reportable Vent Mode Not Reportable FiO2 100 Inspiratory Time Not Reportable PEEP Not Reportable Pressure Support Not Reportable Pressure Control Not Reportable EPAP Not Reportable IPAP Not Reportable BiPAP Not Reportable Microbiology and Other Data: Microbiology 06/03/16 01:15 Influenza Types A,B Antigen (BHAVESH) - Final Nasal Specimen received for Influenza A/B Molecular testing Assess/Plan/Problems-Billing Assessment: 81 yo M h/o AVR, CHF, CAD, CKD, DM2, Alzheimer's p/w decompensated acute diastolic heart failure exacerbation in setting of acute myocardial infarction with stay complicated by acute urinary retention and gross hematuria - Patient Problems (1) Acute myocardial infarction Current Visit: Yes Status: Acute Comment: Acute [place] heparin gtt stopped in setting of hematuria c/w ASA, beta darin, statin No ACEi in setting of AKF Repeat Echo, unchamged , EF 55%. Family aware that pt is not an interventional candidate in the setting of hematuria (2) Acute exacerbation of CHF (congestive heart failure) Comment: diastolic. Improved with lasix Holding lasix CXR with resolved edema bolden in place Suspect decompensation in setting of acute [place] today euvolemic (3) Urinary retention Comment: bolden replaced. Famly aware that pt will need urology f/u as outpatient (4) Hematuria Comment: with anemia due to acute hematuria. heparin has been stopped resolving (5) Acute on chronic renal failure Comment: In setting of ACS, CHF exacerbation improving (6) Diabetes Comment: ISS with good control (7) DVT prophylaxis Comment: SCDs in setting of hematuria Status and Disposition: Home when hematuria stable and kidney fxn stable. Not a candidate for Hospice . Plan to d/c home with VNS tomorrow
[2016-06-07] MEDS: Sertraline* 50 MG TAB PO SCH (20:22)
[2016-06-07] MEDS: Terazosin CAP* 1 MG PO SCH (20:22)
[2016-06-07] MEDS ORDERED: Senna TAB PO SCH (21:00)
[2016-06-08] MEDS: Levothyroxine TAB* 75 MCG TAB PO SCH (05:16)
[2016-06-08 05:27] LABS: Hematocrit 22 % (42-52); Mean Corpuscular HGB Conc 32 g/dl (31-36); Mean Corpuscular Hemoglobin 32 pg (27-31); Mean Corpuscular Volume 98 fL (80-94); Mean Platelet Volume 10 um3 (7.4-10.4); Red Blood Count 2.19 10^6/ul (4.0-5.4); Red Cell Distribution Width 14 % (10.5-15); White Blood Count 7.1 10^3/ul (3.5-10.8)
[2016-06-08 05:39] LABS: BUN/Creatinine Ratio 24.3 (8-20); Calcium 8.2 mg/dL (8.6-10.3); EGFR African American 25.7 (>60)
[2016-06-08] MEDS: Insulin LISPRO* 1 UNITS UNIT SUBCUT SCH ×2 (08:40→12:24)
[2016-06-08] MEDS: Aspirin EC Low Dose* 81 MG TAB.EC PO SCH (08:41)
[2016-06-08] MEDS: Metoprolol Tartrate TAB* 25 MG PO SCH (08:41)
[2016-06-08] MEDS: Docusate CAP* 100 MG PO SCH (08:41)
[2016-06-08] MEDS ORDERED: Furosemide IV* 10 MG/ML 2 ML VIAL (20 MG) IV ONE (09:30)
[2016-06-08] MEDS: Pantoprazole IV* 40 MG IV SCH (15:47)
[2016-06-08] MEDS: Acetaminophen TAB* 325 MG PO PRN (15:55)
[2016-06-08 16:50] VITALS: BP 126/46
--- NOTE | 2016-06-09 02:56 | DS ---
DISCHARGE SUMMARY: DATE OF ADMISSION: 06/02/16 DATE OF DISCHARGE: 06/08/16 PRIMARY CARE PHYSICIAN: Dr. Purdy. DISCHARGE DIAGNOSES: 1. Acute on chronic diastolic congestive heart failure. 2. Non-ST elevation myocardial infarction. 3. Acute renal failure on top of chronic renal disease stage IV. 4. Hematuria that developed while the patient was on heparin drip. 5. Anemia that required 1 unit of packed red blood cell transfusion prior to discharge due to above-mentioned hematuria and acute hemorrhage due to that. SECONDARY DIAGNOSES: 1. 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 2. Aortic stenosis, status post porcine aortic valve replacement in 2008. 3. Diabetes type 2. 4. 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 5. Coronary artery disease. 6. History of chronic diastolic congestive heart failure with ejection fraction estimated at 55%. 7. Dyslipidemia. 8. Alzheimer's dementia. 9. Spinal stenosis, status post laminectomy. MEDICATIONS AT DISCHARGE: Include: 1. Rivastigmine patch 9.5 mg transdermally daily. 2. Acetaminophen 500 mg daily. 3. Aspirin 81 mg daily. 4. Colace 200 mg b.i.d. 5. Lasix 20 mg daily. 6. Levothyroxine 75 mcg daily. 7. Namenda 10 mg b.i.d. 8. Metoprolol tartrate 25 mg b.i.d. 9. Ararat-3 fatty acids 2400 mg b.i.d. 10. Zoloft 50 mg at bedtime. 11. Hytrin 1 mg at bedtime. 1. The patient is being discharged with Delatorre catheter in place. 2. The patient is being discharged on 2 L of oxygen continuously. DIET ON DISCHARGE: Cardiac and diabetic. CONSULTATIONS DURING THE HOSPITALIZATION: Included Dr. Clemencia Hammond from Palliative Care/Hospice as well as Dr. Hager and Dr. Kaye from Cardiology. LABORATORY DATA AND DIAGNOSTIC STUDIES PERFORMED DURING THE HOSPITAL STAY: Included: 1. On 06/08/16, prior to the patient's transfusion, white blood cell count was 7.1, hemoglobin of 7.0, hematocrit of 22, and platelets of 144. 2. Sodium was 139, potassium 5.0, chloride 109, carbon dioxide 24, BUN 73, creatinine 3.01. 3. Transthoracic echocardiogram last obtained on 06/06/16 showed posterior wall hypertrophy with estimated ejection fraction of 50% to 55% with postsurgical hypokinesis. Status post bioprosthetic valve replacement and the valve was functioning normally. There was mild mitral regurgitation and tricuspid regurgitation. 4. The patient's troponin at its peak was at 26.3. 5. The patient's creatinine peaked at 3.49. 6. The patient's last chest x-ray obtained on 06/06/16, impression: "Resolution of vascular congestion changes. Suspect mild chronic interstitial changes with hyperinflation. Small bilateral pleural effusions." 7. Stool occult blood was negative on 06/07/16. HOSPITALIZATION COURSE: Mr. Tommy Mohan is an 81-year-old male with a history of Alzheimer's dementia with chronic diastolic CHF, status post porcine valve replacement for aortic valve stenosis in 2008 who presented with acute diastolic CHF and concurrent non-ST elevation NV and acute renal failure. The patient had seen Dr. Espinoza from Nephrology as an outpatient and in the past was not interested in dialysis if that was to be recommended. The patient required aggressive diuresis and his creatinine actually worsened throughout his hospital stay and then slowly improved once his diuretics were stopped. Initially, according to cardiology consultation, the patient was a candidate for cardiac catheterization, but with his worsening creatinine as well as developed hematuria while on heparin drip, he was furthermore not an interventional candidate. His heparin drip had to be stopped as well as further antiplatelet agents and he is left only on aspirin when going home. The family was very interested in hospice care. In fact, the patient's daughter , Rosie, hoped that the patient qualifies for hospice. Unfortunately, hospice consultation was obtained, and the patient did not qualify for hospice services at home. Due to developed hematuria as well as acute renal failure, his Delatorre catheter was not discontinued at the time of discharge. The patient is asked to see a urologist as an outpatient and I sent the documentation to Dr. Hein. At discharge, the patient also had been hypoxemic throughout his hospital stay and he is going to be discharged on 2 L of oxygen continuously. Due to acute hemorrhage secondary to hematuria, the patient's hemoglobin on the day of discharge was 7.0 and at that point, it was decided that the patient is going to be transfused 1 unit prior to his going home. The patient chronically is on Lasix at 120 mg p.o. at home. That was held during his hospital stay while the patient was diuresed with IV Lasix and later on all the diuretics were stopped for his creatinine worsened. At this point, by the time of discharge, his creatinine is better at 3.01. I will slowly re- institute a small dose of Lasix at the time of discharge at 20 mg daily. At discharge, the VNS services were asked to check the patient's CBC and basic metabolic panel to be drawn on 06/12/16, with the results to be sent back to Dr. Purdy. For followup, the patient's family is recommended to take the patient to Dr. Purdy in approximately 4 to 7 days. They are also asked to call Dr. Hein's office to schedule an appointment in approximately 1 to 2 weeks in regards to possible Delatorre removal. The patient's daughter was considering not sending the patient further to the hospital. I had a long conversation with the daughter stating that since she is the healthcare proxy and she notes her father's wishes and is her decision if she wants to take him back to the hospital if needed. The patient's weight at discharge was 167 pounds and the family is asked to weigh the patient on a daily basis and call Dr. Purdy for most likely more diuretic prescription if his weight increases over 3 pounds. CODE STATUS AT DISCHARGE: DNR. PHYSICAL EXAMINATION: At time of discharge, blood pressure 108/46, heart rate of 68 and regular, respiratory rate 18, oxygen saturation 95% on 2 L of oxygen nasal cannula, and temperature 97.4. General: The patient is an 81-year-old male who is oriented to self. He is pleasant on conversation. HEENT: Head: Atraumatic, normocephalic. Eyes: Pupils equal, reactive to light and accommodation. Oropharynx clear. Mucosa moist. Neck: Supple. No JVD, no bruit bilaterally. Cardiovascular: Regular rate and rhythm with 1/6 systolic ejection murmur at the right upper sternal border. Respiratory: Faint crackles at bilateral bases and occasional rhonchi in bilateral upper lungs, which clear with cough. Abdomen: Soft, nontender. Bowel sounds present in all 4 quadrants. Extremities: There is no edema. Pulses are +2 bilaterally. No clubbing or cyanosis. Neuro Evaluation: Speech clear. Cranial nerves II through XII grossly intact. Motor strength is 5/5 bilaterally. The patient has significant dementia and short-term memory deficits. Please note this is a short summary of the patient's hospital stay. Please refer to further medical records for details. TIME SPENT: Approximately 45 minutes were spent on the patient's discharge. CC: Dr. Purdy; Dr. Augustin; Dr. Espinoza; Dr. Hager; Dr. Kaye; Dr. Clemencia Hammond * [id number]/[facility] #: [id number] [facility]ITALMes[facility]
== END 2016-06-08 16:45 | disposition home health service (06) | DRG 280 ==
LOC: ED 21:56 → ICU 23:29 → MEDTELE 06-05 14:23
PROVIDERS: ADMIT Hospitalist; ATTEND Internal Medicine
PROC: 5A09357 Assistance with Respiratory Ventilation, Less than 24 Consecutive Hours, Continuous Positive Airway Pressure (ICD-10-PCS; principal; 2016-06-02)
PROC: 0T2BX0Z Change Drainage Device in Bladder, External Approach (ICD-10-PCS; 2016-06-04)
PROC: 3C1ZX8Z Irrigation of Indwelling Device using Irrigating Substance, External Approach (ICD-10-PCS; 2016-06-05)
DX: I21.4 Non-ST elevation (NSTEMI) myocardial infarction (principal); J96.02 Acute respiratory failure with hypercapnia; I50.33 Acute on chronic diastolic (congestive) heart failure; N18.4 Chronic kidney disease, stage 4 (severe); J96.01 Acute respiratory failure with hypoxia; D68.32 Hemorrhagic disorder due to extrinsic circulating anticoagulants; E11.22 Type 2 diabetes mellitus with diabetic chronic kidney disease; N17.9 Acute kidney failure, unspecified; G30.9 Alzheimer's disease, unspecified; D53.9 Nutritional anemia, unspecified; D62 Acute posthemorrhagic anemia; F02.80 Dementia in other diseases classified elsewhere, unspecified severity, without behavioral disturbance, psychotic disturbance, mood disturbance, and anxiety; I13.0 Hypertensive heart and chronic kidney disease with heart failure and stage 1 through stage 4 chronic kidney disease, or unspecified chronic kidney disease; Z91.041 Radiographic dye allergy status; E03.9 Hypothyroidism, unspecified; I25.10 Atherosclerotic heart disease of native coronary artery without angina pectoris; F41.9 Anxiety disorder, unspecified; F32.9 Major depressive disorder, single episode, unspecified; Z87.891 Personal history of nicotine dependence; Z95.3 Presence of xenogenic heart valve; E78.5 Hyperlipidemia, unspecified; G43.909 Migraine, unspecified, not intractable, without status migrainosus; E87.6 Hypokalemia; N40.0 Benign prostatic hyperplasia without lower urinary tract symptoms; Z66 Do not resuscitate; R31.0 Gross hematuria; T45.515A Adverse effect of anticoagulants, initial encounter; R33.9 Retention of urine, unspecified; Z91.11 Patient's noncompliance with dietary regimen; Z95.1 Presence of aortocoronary bypass graft; Z88.8 Allergy status to other drugs, medicaments and biological substances; Z79.82 Long term (current) use of aspirin; I08.1 Rheumatic disorders of both mitral and tricuspid valves
CPT/HCPCS: 36415; 36600; 71010; 71020; 80048; 80053; 82272; 82803; 83036; 83605; 83880; 84132; 84145; 84443; 84484; 84520; 85014; 85018; 85025; 85730; 86850; 86900; 86901; 86922; 87040; 87502; 93005; 93306; 94640; 94660; 94760; A9270-GY; J0610; J1644; J1940; J2060; J2270; P9016

== ENCOUNTER 2016-06-19 12:28 | Emergency (ER) | payer MEDICARE, OTHER ==
[2016-06-19 15:29] VITALS: BP 111/41
--- NOTE | 2016-06-19 16:05 | ED ---
Luigi Martinez Billy, scribed for Umair Tyson MD on 06/19/16 at 1559 . GI/ HPI - HPI Summary HPI Summary: Patient is an 81 year-old male coming to [facility] presenting with urinary retention for several days. Nothing makes his symptoms better/worse at this time. He denies any pain. His daughter states that he pulled out his Delatorre catheter 2 days ago. He has a follow-up appointment with urology in [place] in 2 weeks. - History of Current Complaint Chief Complaint: EDUrogenitalProblems Time Seen by Provider: 06/19/16 15:54 Stated Complaint: RETAINING URINE Hx Obtained From: Patient Onset/Duration: Started Days Ago Timing: Constant Severity: Moderate Current Severity: Moderate Associated Signs and Symptoms: Positive: Other: - retention Aggravating Factor(s): Nothing Alleviating Factor(s): Nothing - Additional Pertinent History Primary Care Physician: [id number] - Allergy/Home Medications Allergies/Adverse Reactions: Allergies Allergy/AdvReac Type Severity Reaction Status Date / Time Colchicine Allergy Unknown Verified 06/19/16 12:31 Reaction Details CONTRAST Allergy Unknown Uncoded 01/09/15 22:19 Reaction Details PMH/Surg Hx/FS Hx/Imm Hx Endocrine/Hematology History: Reports: Hx Diabetes, Hx Thyroid Disease - Hypothyroid Cardiovascular History: Reports: Hx Congenital Heart Disease, Hx Congestive Heart Failure, Hx Coronary Artery Disease, Hx Hypertension History: Reports: Hx Chronic Renal Failure - Stage 3 Musculoskeletal History: Reports: Hx Back Problems - chronic pain Sensory History: Reports: Hx Contacts or Glasses Denies: Hx Hearing Problem Opthamlomology History: Reports: Hx Contacts or Glasses Neurological History: Reports: Hx Dementia Psychiatric History: Reports: Hx Anxiety, Hx Depression - Surgical History Surgery Procedure, Year, and Place: Aortic dissection repair Infectious Disease History: No Infectious Disease History: Denies: Traveled Outside the [place] in Last 30 Days - Family History Known Family History: Positive: Renal Disease - Social History Alcohol Use: None Hx Substance Use: No Substance Use Type: Reports: None Hx Tobacco Use: Yes Smoking Status (MU): Former Smoker Have You Smoked in the Last Year: No Review of Systems Negative: Fever Negative: Abdominal Pain Positive: other - urinary retention All Other Systems Reviewed And Are Negative: Yes Physical Exam Triage Information Reviewed: Yes Vital Signs On Initial Exam: Initial Vitals Temp Pulse Resp BP Pulse Ox 97.9 F 51 18 100/46 96 06/19/16 12:31 06/19/16 12:31 06/19/16 12:31 06/19/16 12:31 06/19/16 12:31 Vital Signs Reviewed: Yes Appearance: Positive: Well-Appearing, No Pain Distress Skin: Positive: Warm, Skin Color Reflects Adequate Perfusion, Dry Head/Face: Positive: Normal Head/Face Inspection Eyes: Positive: EOMI, PARAS ENT: Positive: Normal ENT inspection Neck: Positive: Supple, Nontender Respiratory/Lung Sounds: Positive: Clear to Auscultation, Breath Sounds Present Cardiovascular: Positive: Bradycardia Abdomen Description: Positive: Other: - Fullness in the lower abdomen Musculoskeletal: Positive: Normal, Strength/ROM Intact Neurological: Positive: Sensory/Motor Intact, Other - dementia Psychiatric: Positive: Affect/Mood Appropriate Diagnostics - Vital Signs Vital Signs Temp Pulse Resp BP Pulse Ox 06/19/16 15:29 48 18 111/41 100 06/19/16 14:02 98.2 F 51 18 116/43 98 06/19/16 12:31 97.9 F 51 18 100/46 96 - Laboratory Lab Statement: Any lab studies that have been ordered have been reviewed, and results considered in the medical decision making process. GIGU Course/Dx - Diagnoses Provider Diagnoses: Urinary retention, Encounter for Delatorre catheter replacement Discharge - Discharge Plan Condition: Stable Disposition: HOME Patient Education Materials: Urinary Retention in Men (ED), Delatorre Catheter Placement and Care (ED), Urinary Leg Bag (GEN) Referrals: Bj Purdy MD [Primary Care Provider] - Additional Instructions: FOLLOW UP WITH UROLOGY SCHEDULED. RETURN TO THE EMERGENCY DEPARTMENT FOR ANY WORSENING OF YOUR CONDITION OR QUESTIONS OR CONCERNS. The documentation as recorded by the Luigi ochoa Billy accurately reflects the service I personally performed and the decisions made by me, Umair Tyson MD.
[2016-06-19 16:49] LABS: Urine Bacteria Absent (Absent); Urine Bilirubin Negative (Negative); Urine Glucose Negative (Negative); Urine Nitrite Negative (Negative)
--- NOTE | 2016-06-19 18:15 | ED ---
Progress - Progress Note Progress Note: URINE POSITIVE FOR WBCS. CALLED UYEN, PATIENT'S DAUGHTER AND LET HER KNOW RX BACTRIM SENT TO PHARMACY. Course/Dx - Diagnoses Provider Diagnoses: Urinary retention, Encounter for Delatorre catheter replacement
== END 2016-06-19 16:53 | disposition home or self-care (01) ==
LOC: ED 12:28
DX: R33.9 Retention of urine, unspecified (principal); I12.9 Hypertensive chronic kidney disease with stage 1 through stage 4 chronic kidney disease, or unspecified chronic kidney disease; N18.3 Chronic kidney disease, stage 3 (moderate); F03.90 Unspecified dementia, unspecified severity, without behavioral disturbance, psychotic disturbance, mood disturbance, and anxiety; E03.9 Hypothyroidism, unspecified; G89.29 Other chronic pain; F41.9 Anxiety disorder, unspecified; F32.9 Major depressive disorder, single episode, unspecified
CPT/HCPCS: 81003; 81015; 87077; 87086; 87186; 99282

== ENCOUNTER 2017-07-02 07:21 | Emergency (ER) | payer MEDICARE, OTHER ==
[2017-07-02] MEDS ORDERED: NS 0.9% 1000 ML* 1,000 ML IV ONE (07:32)
[2017-07-02 08:21] LABS: ABS Basophils 0 10^3/ul (0-0.2); ABS Eosinophils 0.4 10^3/ul (0-0.6); ABS Lymphocytes 0.7 10^3/ul (1.0-4.8); ABS Monocytes 0.5 10^3/ul (0-0.8); ABS Neutrophils 2.7 10^3/ul (1.5-7.7); ABS Nucleated RBC 0 10^3/ul; Eosinophil % 8.8 % (0-6); Hematocrit 32 % (42-52); Hemoglobin 10.6 g/dl (14.0-18.0); Lymphocyte % 16.2 % (25-47); Mean Corpuscular HGB Conc 33 g/dl (31-36); Mean Corpuscular Hemoglobin 32 pg (27-31); Mean Corpuscular Volume 97 fL (80-94); Mean Platelet Volume 8 um3 (7.4-10.4); Nucleated Red Blood Cells % 0.1; Platelet Count 150 10^3/ul (150-450); Red Blood Count 3.28 10^6/ul (4.0-5.4); Red Cell Distribution Width 16 % (10.5-15); White Blood Count 4.4 10^3/ul (3.5-10.8)
[2017-07-02 09:04] LABS: Urine Appearance Cloudy; Urine Blood Negative (Negative); Urine Color Yellow; Urine Ketones Negative (Negative); Urine Protein 1+(30 mg/dL) (Negative); Urine Specific Gravity 1.013 (1.010-1.030); Urine Urobilinogen Negative (Negative)
[2017-07-02] MEDS ORDERED: Sulfamethox/Trimethoprim DS 800/160* TAB PO ONE (11:18)
[2017-07-02 11:36] VITALS: BP 117/47
--- NOTE | 2017-07-02 17:34 | ED ---
Blair Martinez Nilda, scribed for Domingo Espinoza MD on 07/02/17 at 0811 . GI/ HPI - HPI Summary HPI Summary: This patient is an 82 year old M presenting to [facility] [place] accompanied by daughter with a chief complaint of urinary retention for the past couple of days. Pt lives at home with daughter who is a nurse that straight caths him every day. Daughter reports pts abd is looking abnormally distended and yesterday pt was unable to void after cath. She states pt has cough and abd discomfort, but denies SOB. The patient rates the pain 4/10 in severity. Symptoms aggravated and alleviated by nothing. - History of Current Complaint Chief Complaint: EDUrogenitalProblems Time Seen by Provider: 07/02/17 07:31 Stated Complaint: POSSIBLE RETAINING OF FLUIDS Hx Obtained From: Patient, Family/Bankruptcy Processor - daughter Onset/Duration: Started Days Ago, Still Present Timing: Constant Current Severity: Moderate Pain Intensity: 4 Location of Pain: Diffuse Pain Characteristics: Other: - "discomfort" Associated Signs and Symptoms: Positive: Other: - abd distention, urinary retention, cough and abd discomfort, but denies SOB Aggravating Factor(s): Nothing Alleviating Factor(s): Nothing - Additional Pertinent History Primary Care Physician: [id number] - Allergy/Home Medications Allergies/Adverse Reactions: Allergies Allergy/AdvReac Type Severity Reaction Status Date / Time MS Colchicine [Colchicine] Allergy Unknown Verified 06/19/16 12:31 Reaction Details CONTRAST Allergy Unknown Uncoded 01/09/15 22:19 Reaction Details PMH/Surg Hx/FS Hx/Imm Hx Endocrine/Hematology History: Reports: Hx Diabetes, Hx Thyroid Disease - Hypothyroid Cardiovascular History: Reports: Hx Congenital Heart Disease, Hx Congestive Heart Failure, Hx Coronary Artery Disease, Hx Hypertension History: Reports: Hx Chronic Renal Failure - Stage 3 Musculoskeletal History: Reports: Hx Back Problems - chronic pain Sensory History: Reports: Hx Contacts or Glasses Denies: Hx Hearing Problem Opthamlomology History: Reports: Hx Contacts or Glasses Neurological History: Reports: Hx Dementia Psychiatric History: Reports: Hx Anxiety, Hx Depression - Surgical History Surgery Procedure, Year, and Place: Aortic dissection repair Infectious Disease History: No Infectious Disease History: Denies: Traveled Outside the [place] in Last 30 Days - Family History Known Family History: Positive: Renal Disease - Social History Alcohol Use: None Hx Substance Use: No Substance Use Type: Reports: None Hx Tobacco Use: Yes Smoking Status (MU): Former Smoker Have You Smoked in the Last Year: No Review of Systems Positive: Cough. Negative: Shortness Of Breath Positive: Abdominal Pain - discomfort, Other - abd distention Positive: other - urinary retention All Other Systems Reviewed And Are Negative: Yes Physical Exam - Summary Physical Exam Summary: VITAL SIGNS: Reviewed. GENERAL: Patient is a well-developed and nourished male who is lying comfortable in the stretcher. Patient is not in any acute respiratory distress. HEAD AND FACE: No signs of trauma. No ecchymosis, hematomas or skull depressions. No sinus tenderness. EYES: PERRLA, EOMI x 2, No injected conjunctiva, no nystagmus. EARS: Hearing grossly intact. Ear canals and tympanic membranes are within normal limits. MOUTH: Oropharynx within normal limits. NECK: Supple, trachea is midline, no adenopathy, no JVD, no carotid bruit, no c- spine tenderness, neck with full ROM. CHEST: Symmetric, no tenderness at palpation LUNGS: Clear to auscultation bilaterally. No wheezing or crackles. CVS: Regular rate and rhythm, S1 and S2 present, no murmurs or gallops appreciated. ABDOMEN: Soft, non-tender. Mild distention. No rebound no guarding, and no masses palpated. Bowel sounds are normal. EXTREMITIES: FROM in all major joints, no edema, no cyanosis or clubbing. NEURO: Alert and oriented x 3. No acute neurological deficits. Speech is normal and follows commands. SKIN: Dry and warm Triage Information Reviewed: Yes Vital Signs On Initial Exam: Initial Vitals Temp Pulse Resp BP Pulse Ox 98.0 F 81 20 134/53 97 07/02/17 07:26 07/02/17 07:26 07/02/17 07:26 07/02/17 07:26 07/02/17 07:26 Vital Signs Reviewed: Yes Diagnostics - Vital Signs Vital Signs Temp Pulse Resp BP Pulse Ox 07/02/17 07:26 98.0 F 81 20 134/53 97 - Laboratory Lab Results: Lab Results 07/02/17 07/02/17 07/02/17 Range/Units 08:05 08:05 08:05 WBC 4.4 (3.5-10.8) 10^3/ul RBC 3.28 L (4.0-5.4) 10^6/ul Hgb 10.6 L (14.0-18.0) g/dl Hct 32 L (42-52) % MCV 97 H (80-94) fL MCH 32 H (27-31) pg MCHC 33 (31-36) g/dl RDW 16 H (10.5-15) % Plt Count 150 (150-450) 10^3/ul MPV 8 (7.4-10.4) um3 Neut % (Auto) 62.6 (38-83) % Lymph % (Auto) 16.2 L (25-47) % Castro % (Auto) 11.4 H (1-9) % Eos % (Auto) 8.8 H (0-6) % Baso % (Auto) 1.0 (0-2) % Absolute Neuts (auto) 2.7 (1.5-7.7) 10^3/ul Absolute Lymphs (auto) 0.7 L (1.0-4.8) 10^3/ul Absolute Monos (auto) 0.5 (0-0.8) 10^3/ul Absolute Eos (auto) 0.4 (0-0.6) 10^3/ul Absolute Basos (auto) 0 (0-0.2) 10^3/ul Absolute Nucleated RBC 0 10^3/ul Nucleated RBC % 0.1 Sodium 140 (133-145) mmol/L Potassium TNP Chloride 104 (101-111) mmol/L Carbon Dioxide 28 (22-32) mmol/L Anion Gap 8 (2-11) mmol/L BUN 40 H (6-24) mg/dL Creatinine 2.66 H (0.67-1.17) mg/dL Est GFR ( Amer) 29.6 (>60) Est GFR (Non-Af Amer) 23.0 (>60) BUN/Creatinine Ratio 15.0 (8-20) Glucose 188 H (70-100) mg/dL Lactic Acid 2.6 H* (0.5-2.0) mmol/L Calcium 8.7 (8.6-10.3) mg/dL Total Bilirubin 0.30 (0.2-1.0) mg/dL AST TNP ALT 12 (7-52) U/L Alkaline Phosphatase 85 (34-104) U/L C-Reactive Protein 42.31 H (< 5.00) mg/L Total Protein 6.9 (6.4-8.9) g/dL Albumin 3.7 (3.2-5.2) g/dL Globulin 3.2 (2-4) g/dL Albumin/Globulin Ratio 1.2 (1-3) Urine Color Urine Appearance Urine pH (5-9) Ur Specific Crowley (1.010-1.030) Urine Protein (Negative) Urine Ketones (Negative) Urine Blood (Negative) Urine Nitrate (Negative) Urine Bilirubin (Negative) Urine Urobilinogen (Negative) Ur Leukocyte Esterase (Negative) Urine WBC (Auto) (Absent) Urine RBC (Auto) (Absent) Urine Bacteria (Absent) Hyaline Casts (Absent) Urine Yeast (Absent) Urine Glucose (Negative) Urine Ascorbic Acid (Negative) 07/02/17 07/02/17 Range/Units 08:26 09:35 WBC (3.5-10.8) 10^3/ul RBC (4.0-5.4) 10^6/ul Hgb (14.0-18.0) g/dl Hct (42-52) % MCV (80-94) fL MCH (27-31) pg MCHC (31-36) g/dl RDW (10.5-15) % Plt Count (150-450) 10^3/ul MPV (7.4-10.4) um3 Neut % (Auto) (38-83) % Lymph % (Auto) (25-47) % Castro % (Auto) (1-9) % Eos % (Auto) (0-6) % Baso % (Auto) (0-2) % Absolute Neuts (auto) (1.5-7.7) 10^3/ul Absolute Lymphs (auto) (1.0-4.8) 10^3/ul Absolute Monos (auto) (0-0.8) 10^3/ul Absolute Eos (auto) (0-0.6) 10^3/ul Absolute Basos (auto) (0-0.2) 10^3/ul Absolute Nucleated RBC 10^3/ul Nucleated RBC % Sodium (133-145) mmol/L Potassium 4.9 Chloride (101-111) mmol/L Carbon Dioxide (22-32) mmol/L Anion Gap (2-11) mmol/L BUN (6-24) mg/dL Creatinine (0.67-1.17) mg/dL Est GFR ( Amer) (>60) Est GFR (Non-Af Amer) (>60) BUN/Creatinine Ratio (8-20) Glucose (70-100) mg/dL Lactic Acid (0.5-2.0) mmol/L Calcium (8.6-10.3) mg/dL Total Bilirubin (0.2-1.0) mg/dL AST 18 ALT (7-52) U/L Alkaline Phosphatase (34-104) U/L C-Reactive Protein (< 5.00) mg/L Total Protein (6.4-8.9) g/dL Albumin (3.2-5.2) g/dL Globulin (2-4) g/dL Albumin/Globulin Ratio (1-3) Urine Color Yellow Urine Appearance Cloudy Urine pH 5.0 (5-9) Ur Specific Crowley 1.013 (1.010-1.030) Urine Protein 1+(30 mg/dl) H (Negative) Urine Ketones Negative (Negative) Urine Blood Negative (Negative) Urine Nitrate Negative (Negative) Urine Bilirubin Negative (Negative) Urine Urobilinogen Negative (Negative) Ur Leukocyte Esterase 3+ H (Negative) Urine WBC (Auto) 3+(>20/hpf) H (Absent) Urine RBC (Auto) Trace(0-2/hpf) (Absent) Urine Bacteria Absent (Absent) Hyaline Casts Present H (Absent) Urine Yeast Present H (Absent) Urine Glucose Negative (Negative) Urine Ascorbic Acid * H (Negative) Result Diagrams: 07/02/17 08:05 07/02/17 09:35 Lab Statement: Any lab studies that have been ordered have been reviewed, and results considered in the medical decision making process. GIGU Course/Dx - Course Assessment/Plan: This patient is an 82 year old M presenting to [facility] [place] accompanied by daughter with a chief complaint of urinary retention for the past couple of days. Pt lives at home with daughter who is a nurse and straight caths him every day. Daughter reports pts abd is looking abnormally distended and yesterday pt was unable to void after cath. She states pt has cough and abd discomfort, but denies SOB. The patient rates the pain 4/10 in severity. Symptoms aggravated and alleviated by nothing. Test results show slight anemia with Hbg 10.6 and Htc 32. Pt has acute chronic renal insufficiency and a CRP of 42. It seems that pt has a UTI. We placed a bolden catheter since the pt was having urinary retention. I discussed case with Dr. Fritz (Urology) who agrees with the plan, recommends bactrim, and a urine culture. He also recommends D/C home with a bolden catheter and a follow up to his office. The pt is hemodynamically stable, alert and oriented x3. Pt feels better. - Diagnoses Provider Diagnoses: Urinary retention, UTI (urinary tract infection), Renal insufficiency - Physician Notifications Discussed Care Of Patient With: Wing Fritz - Urology Time Discussed With Above Provider: 11:15 Instructed by Provider To: Other - agrees with the treatment plan, recommends bactrim, and a urine culture. He also recommends D/C home with a bolden catheter and a follow up to his office. Discharge - Discharge Plan Condition: Stable Disposition: HOME Prescriptions: Sulfamethox/Trimethoprim DS* [Bactrim DS 800/160 TAB*] 1 tab PO BID #20 tab Patient Education Materials: Urinary Retention in Men (ED), Urinary Tract Infection in Men (ED) Referrals: Bj Purdy MD [Primary Care Provider] - Wing Fritz MD [Medical Doctor] - As Soon As Possible Additional Instructions: RETURN TO THE EMERGENCY DEPARTMENT FOR CHANGING OR WORSENING SYMPTOMS. The documentation as recorded by the Blair ochoa Nilda accurately reflects the service I personally performed and the decisions made by me, Domingo Espinoza MD.
== END 2017-07-02 12:11 | disposition home or self-care (01) ==
LOC: ED 07:21
DX: R33.9 Retention of urine, unspecified (principal); N39.0 Urinary tract infection, site not specified; N28.9 Disorder of kidney and ureter, unspecified; R05 Cough; R07.9 Chest pain, unspecified; Z87.891 Personal history of nicotine dependence
CPT/HCPCS: 36415; 80053; 81003; 81015; 83605; 85025; 86140; 87086; 96360; 99282; A9270-GY